=== PATIENT | female | born 1965 | race Two or more races ===

== ENCOUNTER → 2024-11-15 | Outpatient (CLI) | payer MEDICARE, BC, SELFPAY ==
--- NOTE | 2024-11-15 10:00 | XR_ITS ---
Examination: Screening digital mammography, bilateral Computer aided detection 3-D breast Tomosynthesis, bilateral Date and time of exam: November 15, 2024 10:00 AM Compared to mammograms dating to February 05, 2017 Indication: Screening Technique: Nonmagnified MLO, CC views of the breasts to been obtained, reconstructed from 3-D Tomosynthesis images. R2 computer aided detection program utilized for evaluation of suspicious masses and/or abnormal calcifications. 3-D Tomosynthesis images obtained. Findings: The breasts are heterogeneously dense, which may obscure small masses Bilateral breast nodules again noted without definite change compared to 2018 Benign calcifications Impression: BI-RADS Category 0: Incomplete: Need additional imaging evaluation Recommend bilateral breast sonography follow-up to confirm bilateral circumscribed benign breast nodules
== END | disposition home or self-care (01) ==
PROVIDERS: PCP Physician Assistant; Referring Provider Physician Assistant; Visit Provider Physician Assistant
DX: Z12.31 Encounter for screening mammogram for malignant neoplasm of breast (principal); R92.8 Other abnormal and inconclusive findings on diagnostic imaging of breast; N63.20 Unspecified lump in the left breast, unspecified quadrant; N63.10 Unspecified lump in the right breast, unspecified quadrant
CPT/HCPCS: 77063; 77067

== ENCOUNTER 2025-04-22 16:55 | Emergency (ER) | payer MEDICARE, BC, SELFPAY ==
[2025-04-22 16:58] VITALS: BMI 30.2
[2025-04-22 18:24] VITALS: BP 169/79; PULSE 89; RESP 18; TEMP 36.9; O2SAT 99
--- NOTE | 2025-04-22 18:49 | XR_ITS ---
Examination: Venous duplex lower extremity sonogram, bilateral. Date and time of exam: April 22, 2025, 1946 hours INDICATIONS: Bilateral leg swelling and pain 1 month Technique: Multiple sonographic images of the deep venous system have been obtained. B-mode/2-D grayscale imaging of vascular structures and Doppler spectral analysis (waveforms) and color performed Both legs are examined. Findings: Deep venous systems do not demonstrate abnormal echogenicity. All visualized deep veins exhibit compressibility. All visualized deep veins exhibit augmentation. Impression: Negative for deep vein thrombosis
--- NOTE | 2025-04-22 20:01 | PD.EDEXREM ---
ED Extremity Problem RME/HPI General Chief complaint: Extremity Problem,Nontraumatic Stated complaint: SWELLING LEFT LEG/PAIN FOR 3 WEEKS, R/O DVT Time Seen by Provider: 04/22/25 18:48 Arrival date/time: 04/22/25 16:55 60F with history of kidney transplant, HTN, and hypothyroidism presents to ED with 3 weeks of BLE swelling/pain. Patient denies SOB and fall/trauma. Patient was sent for US to r/o DVT. Limitations: no limitations Related Data Home Medications ?Medication ?Instructions ?Recorded ?Confirmed omega-3 fatty acids 1,000 mg PO QDAY 08/23/20 04/13/21 amino acids-protein hydrolysate 16 32 ml PO DAILY 01/22/21 04/13/21 gram-100 kcal/30 mL oral liquid (Liquacel) calcitriol 0.5 mcg capsule 0.5 mcg PO QDAY 01/22/21 04/13/21 docusate sodium 250 mg capsule 250 mg PO BID 01/22/21 04/13/21 omega-3 fatty acids 4,000 mg PO QDAY 01/22/21 04/13/21 simvastatin 20 mg tablet 20 mg PO QDAY 01/22/21 04/13/21 vitamin B comp no.3-folic acid 1 1 tab PO QDAY 01/22/21 04/13/21 mg-vit C 60 mg-biotin 300 mcg tablet (Nephro-Alvarado Rx) amlodipine 10 mg tablet 10 mg PO QDAY 04/12/21 04/13/21 furosemide 80 mg tablet 80 mg PO BID 04/12/21 04/13/21 levothyroxine 25 mcg tablet 25 mcg PO QDAY 04/12/21 04/13/21 (Synthroid) losartan 100 mg tablet 100 mg PO QDAY 04/12/21 04/13/21 mometasone 200 mcg/actuation HFA 1 inh inhalation QDAY 04/12/21 04/13/21 aerosol inhaler (Asmanex HFA) sevelamer HCl 800 mg tablet 800 mg PO TID 04/12/21 04/13/21 Previous Rx's ?Medication ?Instructions ?Recorded tramadol 50 mg tablet 50 mg PO Q6H PRN pain #20 tabs 01/23/21 hydrocodone 5 mg-acetaminophen 325 1 tab PO Q8H PRN pain (scale score 04/13/21 mg tablet 7-10) #15 tabs hydrocodone 5 mg-acetaminophen 325 1 tab PO Q8H PRN pain #10 tabs 07/20/ mg tablet Allergies Allergy/AdvReac Type Severity Reaction Status Date / Time VITAMIN B Allergy Severe Hives Uncoded 04/22/25 17:01 Review of Systems Review of Systems Systems Reviewed: All systems reviewed, normal except as documented Constitutional Constitutional: Reports system reviewed and no additional complaints, except as documented, Denies fever(s) and Denies headache(s) ENT Ears, Nose, Mouth, and Throat: Denies disequilibrium and Denies headache(s) Cardiovascular Cardiovascular: Reports system reviewed and no additional complaints, except as documented, Denies chest pain and Denies dyspnea Respiratory Respiratory: Reports system reviewed and no additional complaints, except as documented, Denies cough and Denies dyspnea Gastrointestinal Gastrointestinal: Reports system reviewed and no additional complaints, except as documented, Denies abdominal pain, Denies nausea and Denies vomiting Integumentary/Breasts Skin/Breast: Reports as per HPI and Reports skin swelling Neurologic Neurologic: Reports system reviewed and no additional complaints, except as documented, Denies confusion, Denies disequilibrium and Denies headache(s) Psychiatric Psychiatric: Denies confusion Past Medical History Past Medical History NEUROLOGIC: Positive Migraine; Negative Neurological Disorders or Seizures CARDIAC: Positive Cardiac Disorders, Hypercholesterolemia and Hypertension; Negative Congestive Heart Failure, Edema, Cellulitis or Varicose Veins RESPIRATORY: Negative Chronic Obstructive Pulmonary Disease (COPD) GASTROINTESTINAL: Positive Gastrointestinal Disorders, Hemorrhoids and Gastroesophageal Reflux Disease; Negative Hepatitis GENITOURINARY: Positive Renal Disease; Negative Genitourinary Disorders REPRODUCTIVE: Positive Previous Pregnancies MUSCULOSKELETAL: Negative Musculoskeletal Disorders ENDOCRINE: Positive Endocrine Disorders and Hypothyroidism; Negative Diabetes Mellitus Type 1 or Diabetes Mellitus Type 2 HEMATOLOGIC: Positive Blood Disorders and Anemia OTHER HISTORY: Positive Organ Transplant (R KIDNEY 07/12/24), Chicken Pox and Measles; Negative Hospitalization, Autoimmune Disease, Shingles, Falls, Blood Transfusions, Blood Transfusion Reaction, Anesthesia Reactions, Chemotherapy, Radiation Therapy, MRSA, Mumps or Cancer Family History FAMILY HISTORY: Positive Family Cardiac Disorders and Family Surgery; Negative Family Psychiatric Problems, Family Respiratory Disorders, Family Gastrointestinal Problems, Family Cancer or Family Anesthesia Reaction Surgical History SURGICAL: Positive Lumpectomy, Tubal Ligation and Organ Transplant (R KIDNEY 07/12/24); Negative Pacemaker Social History SMOKING STATUS: Never smoker SUBSTANCE USE: does not use ED Exam General Limitations: Present no limitations General appearance: Present alert and in no apparent distress Head Head exam: Present atraumatic Eye Eye exam: Present normal appearance, PERRL and EOMI ENT ENT exam: Present normal exam, normal oropharynx and mucous membranes moist Neck Neck exam: Present normal inspection, full ROM and trachea midline Chest Chest inspection: Present normal inspection and symmetric chest wall rise Respiratory Respiratory exam: Present normal lung sounds bilaterally Cardiovascular Cardiovascular exam: Present regular rate, normal rhythm and normal heart sounds Abdominal Exam Abdominal exam: Present soft and normal bowel sounds Extremities Exam Extremities exam: Present normal inspection and full ROM Expanded Lower Extremity Exam Lower leg exam: Present full ROM and swelling Ankle exam: Present full ROM and swelling Foot/toe exam: Present full ROM and swelling Back Exam Back exam: Present normal inspection and full ROM Neurological Exam Neurological exam: Present alert, oriented X3 and CN II-XII intact Psychiatric Psychiatric exam: Present normal affect and normal mood Skin Skin exam: Present warm, dry, intact and normal color Course Quality Measures none Orders Category Date Time Status US venous doppler LE BI Stat Exams 04/22/25 18:49 Completed Vital Signs Vital signs: Vital Signs Temperature 98.5 F 04/22/25 18:24 Pulse Rate 89 04/22/25 18:24 Respiratory Rate 18 04/22/25 18:24 Blood Pressure 169/79 H 04/22/25 18:24 Pulse Oximetry (%) 99 04/22/25 18:24 Oxygen Delivery Method Room Air 04/22/25 18:24 O2 at 99% on RA and WNLs Extremity Problem MDM Narrative MDM Narrative:: 60F with history of kidney transplant, HTN, and hypothyroidism presents to ED with 3 weeks of BLE swelling/pain. Patient denies SOB and fall/trauma. Patient was sent for US to r/o DVT. Physical exam reveals mildly swollen BLE, but normal WOB. Gait normal. Patient is afebrile, calm, and alert. US no DVT. New Vehicle Sales Consultant given. Patient data External records reviewed:: [facility] previous records Clinical information provided by:: patient Social determinants that could affect healthcare access:: none Patient has the following chronic illnesses:: kidney transplant, HTN, and hypothyroidism How is presenting disease/condition affected by chronic disease/condition?: exacerbated by Evaluation data The following diagnostics were reviewed and interpreted by me:: radiology exam(s) Lab and/or radiology exams considered but not ordered:: ordered Interpretation Summary: above Medications / Prescriptions Medications or Prescriptions considered but not ordered:: not ordered Medication administrations:: n/a Consultations Consultation(s) initiated? (list below): No Diagnosis Extremity Problem Differential Diagnosis: herpes zoster, gout, cellulitis, superficial thrombophlebitis, deep venous thrombosis of upper extremity, lower extremity edema and deep vein thrombosis of lower extremity Most likely diagnosis given after review of the tests above:: low extremity edema Admission Indicated Admission indicated?: not indicated Admission Request Was there a request for admission?: No Disposition Plan Disposition Plan: Discharge Discharge Attestation Discharge Attestation: The patient and all family members were given an opportunity to ask questions and understood the discharge instructions. Discharge instructions specifically effects, indications for sooner follow up or return to the emergency department, and the expected course of current diagnosis. Patient condition: Stable Discharge Plan Plan Patient Disposition: HOME (Self Care) Discharge Disposition comment: Stable Prescriptions/Referrals Prescriptions/Med Rec: No Action sevelamer HCl 800 mg Tablet 800 mg PO TID levothyroxine [Synthroid] 25 mcg Tablet 25 mcg PO QDAY furosemide 80 mg Tablet 80 mg PO BID amlodipine 10 mg Tablet 10 mg PO QDAY losartan 100 mg Tablet 100 mg PO QDAY Asmanex HFA 200 mcg/actuation Hfa Aerosol Inhaler 1 inh INHALATION QDAY hydrocodone-acetaminophen 5-325 mg tablet 1 tab PO Q8H MDD 3 PRN (Reason: pain (scale score 7-10)) Qty: 15 0RF omega-3 fatty acids Capsule 1,000 mg PO QDAY simvastatin 20 mg Tablet 20 mg PO QDAY calcitriol 0.5 mcg Capsule 0.5 mcg PO QDAY docusate sodium 250 mg Capsule 250 mg PO BID omega-3 fatty acids Capsule 4,000 mg PO QDAY Nephro-Alvarado Rx 1-60-300 mg-mg-mcg Tablet 1 tab PO QDAY Liquacel 16-100 gram-kcal/30 mL Liquid 32 ml PO DAILY tramadol 50 mg tablet 50 mg PO Q6H PRN (Reason: pain) Qty: 20 0RF hydrocodone-acetaminophen 5-325 mg tablet 1 tab PO Q8H MDD 3 tablets/day PRN (Reason: pain) Qty: 10 0RF Referrals: Benito Welsh MD [Primary Care Provider] - In 1 week Problem List Clinical Impression: Lower extremity edema Patient/Caregiver Discharge Instructions Education Materials: ED Leg Swelling in Both Legs Additional Instructions: Please follow-up with PCP within 24-48 hours and return immediately if symptoms worsen. Print Language: Yoruba Stand Alone Forms: Patient Portal Info Letter PA/TRUCK CLEANER Supervising Physician PA/TRUCK CLEANER Supervising Physician: Dr. Stern
== END 2025-04-22 21:46 | disposition home or self-care (01) ==
PROVIDERS: Emergency Provider Emergency Medicine; PCP Family Medicine
DX: R60.0 Localized edema (principal); M79.605 Pain in left leg; I10 Essential (primary) hypertension; E03.9 Hypothyroidism, unspecified; Z94.0 Kidney transplant status
CPT/HCPCS: 93970; 99283

== ENCOUNTER 2025-06-03 12:41 | Emergency (ER) | payer MEDICARE, BC, SELFPAY ==
[2025-06-03 12:42] VITALS: BMI 31.1
[2025-06-03 13:04] VITALS: BP 157/99; PULSE 62; RESP 18; O2SAT 99
--- NOTE | 2025-06-03 13:17 | PD.EDHA ---
ED Headache RME/HPI General Chief Complaint: Headache Stated Complaint: HEADACHE SINCE FRIDAY, HX OF MIGRAINE Time Seen by Provider: 06/03/25 12:59 Source: patient Arrival date/time: 06/03/25 12:41 60-year-old female with a history of hypertension, kidney transplant, and history of migraines presents to the emergency room with a chief complaint of a headache x 4 days Mode of arrival: ambulatory Limitations: no limitations Related Data Home Medications ?Medication ?Instructions ?Recorded ?Confirmed omega-3 fatty acids 1,000 mg PO QDAY 08/23/20 04/13/21 amino acids-protein hydrolysate 16 32 ml PO DAILY 01/22/21 04/13/21 gram-100 kcal/30 mL oral liquid (Liquacel) calcitriol 0.5 mcg capsule 0.5 mcg PO QDAY 01/22/21 04/13/21 docusate sodium 250 mg capsule 250 mg PO BID 01/22/21 04/13/21 omega-3 fatty acids 4,000 mg PO QDAY 01/22/21 04/13/21 simvastatin 20 mg tablet 20 mg PO QDAY 01/22/21 04/13/21 vitamin B comp no.3-folic acid 1 1 tab PO QDAY 01/22/21 04/13/21 mg-vit C 60 mg-biotin 300 mcg tablet (Nephro-Alvarado Rx) amlodipine 10 mg tablet 10 mg PO QDAY 04/12/21 04/13/21 furosemide 80 mg tablet 80 mg PO BID 04/12/21 04/13/21 levothyroxine 25 mcg tablet 25 mcg PO QDAY 04/12/21 04/13/21 (Synthroid) losartan 100 mg tablet 100 mg PO QDAY 04/12/21 04/13/21 mometasone 200 mcg/actuation HFA 1 inh inhalation QDAY 04/12/21 04/13/21 aerosol inhaler (Asmanex HFA) sevelamer HCl 800 mg tablet 800 mg PO TID 04/12/21 04/13/21 Previous Rx's ?Medication ?Instructions ?Recorded tramadol 50 mg tablet 50 mg PO Q6H PRN pain #20 tabs 01/23/21 hydrocodone 5 mg-acetaminophen 325 1 tab PO Q8H PRN pain (scale score 04/13/21 mg tablet 7-10) #15 tabs hydrocodone 5 mg-acetaminophen 325 1 tab PO Q8H PRN pain #10 tabs 07/20/23 mg tablet acetaminophen-caffeine 500 mg-65 1 tab PO Q8H PRN pain #30 tabs 06/03/25 mg tablet (Excedrin Tension Headache) Allergies Allergy/AdvReac Type Severity Reaction Status Date / Time VITAMIN B Allergy Severe Hives Uncoded 06/03/25 12:44 ED Exam General Limitations: Present no limitations Course Quality Measures none Orders Category Date Time Status Acetaminophen Tab [Tylenol ES Tab] Med 06/03/25 13:13 Discontinued 1,000 mg PO X1 ONE DiphenhydrAMINE [Benadryl] Med 06/03/25 13:11 Discontinued 25 mg PO X1 ONE Metoclopramide [Reglan] Med 06/03/25 13:11 Discontinued 10 mg PO X1 ONE SUMAtriptan INJ [Imitrex Inj] Med 06/03/25 14:35 Discontinued 6 mg SC X1 ONE Vital Signs Vital signs: Vital Signs Pulse Rate 62 06/03/25 13:04 Respiratory Rate 18 06/03/25 13:04 Blood Pressure 157/99 H 06/03/25 13:04 Pulse Oximetry (%) 99 06/03/25 13:04 Oxygen Delivery Method Room Air 06/03/25 13:04 Headache MDM Narrative MDM Narrative:: 60-year-old female with a history of hypertension, kidney transplant, and history of migraines presents to the emergency room with a chief complaint of a headache x 4 days Patient is hemodynamically stable and in no apparent distress Physical examination shows a left-sided headache that has been going on for the last 4 days. Patient states she has a history of migraines and has not taken any migraine medication in a while since her last one was over 4 months ago. Physical examination shows a normal neurological exam. There are no focal neurological deficits. Patient is a GCS of 15 she is alert and oriented x 3 pupils are PERRLA EOMs are intact all cranial reflexes are within normal limits The patient was given pain medication with significant improvement to her symptoms Patient was discharged and educated to follow-up with primary care provider in the next 24 to 48 hours and return to the emergency room for any evidence of worsening signs or symptoms Patient data External records reviewed:: [facility] previous records Clinical information provided by:: patient Social determinants that could affect healthcare access:: none Patient has the following chronic illnesses:: No chronic illness How is presenting disease/condition affected by chronic disease/condition?: no chronic disease Evaluation data The following diagnostics were reviewed and interpreted by me:: lab results and radiology exam(s) Lab and/or radiology exams considered but not ordered:: Labs and radiology exams considered and ordered Interpretation Summary: N/A Medications / Prescriptions Medications or Prescriptions considered but not ordered:: Medication given Medication administrations:: Medication Administration History Discontinued Medications Acetaminophen (Acetaminophen 500 Mg Tablet) 1,000 mg PO X1 ONE Stop: 06/03/25 13:14 Last Admin: 06/03/25 13:21 Dose: 1,000 mg Documented By: Diphenhydramine HCl (Diphenhydramine 25 Mg Capsule) 25 mg PO X1 ONE Stop: 06/03/25 13:12 Last Admin: 06/03/25 13:22 Dose: 25 mg Documented By: Metoclopramide HCl (Metoclopramide 5 Mg Tablet) 10 mg PO X1 ONE Stop: 06/03/25 13:12 Last Admin: 06/03/25 13:22 Dose: 10 mg Documented By: Sumatriptan Succinate (Sumatriptan Inj 6 Mg/0.5 Ml Vial) 6 mg SC X1 ONE Stop: 06/03/25 14:36 Last Admin: 06/03/25 14:48 Dose: 6 mg Documented By: Medication given Consultations Consultation(s) initiated? (list below): No Diagnosis Differential diagnosis headache: migraine, tension headache, subarachnoid hemorrhage and headache Most likely diagnosis given after review of the tests above:: Headache Admission Indicated Admission indicated?: not indicated Admission Request Was there a request for admission?: No Disposition Plan Disposition Plan: Discharge Discharge Attestation Discharge Attestation: The patient and all family members were given an opportunity to ask questions and understood the discharge instructions. Discharge instructions specifically effects, indications for sooner follow up or return to the emergency department, and the expected course of current diagnosis. Patient condition: Stable Discharge Plan Plan Patient Disposition: HOME (Self Care) Discharge Disposition comment: Stable Prescriptions/Referrals Prescriptions/Med Rec: New Excedrin Tension Headache 500-65 mg tablet 1 tab PO Q8H PRN (Reason: pain) Qty: 30 0RF No Action sevelamer HCl 800 mg Tablet 800 mg PO TID levothyroxine [Synthroid] 25 mcg Tablet 25 mcg PO QDAY furosemide 80 mg Tablet 80 mg PO BID amlodipine 10 mg Tablet 10 mg PO QDAY losartan 100 mg Tablet 100 mg PO QDAY Asmanex HFA 200 mcg/actuation Hfa Aerosol Inhaler 1 inh INHALATION QDAY hydrocodone-acetaminophen 5-325 mg tablet 1 tab PO Q8H MDD 3 PRN (Reason: pain (scale score 7-10)) Qty: 15 0RF omega-3 fatty acids Capsule 1,000 mg PO QDAY simvastatin 20 mg Tablet 20 mg PO QDAY calcitriol 0.5 mcg Capsule 0.5 mcg PO QDAY docusate sodium 250 mg Capsule 250 mg PO BID omega-3 fatty acids Capsule 4,000 mg PO QDAY Nephro-Alvarado Rx 1-60-300 mg-mg-mcg Tablet 1 tab PO QDAY Liquacel 16-100 gram-kcal/30 mL Liquid 32 ml PO DAILY tramadol 50 mg tablet 50 mg PO Q6H PRN (Reason: pain) Qty: 20 0RF hydrocodone-acetaminophen 5-325 mg tablet 1 tab PO Q8H MDD 3 tablets/day PRN (Reason: pain) Qty: 10 0RF Referrals: Alvaro Key MD [Primary Care Provider, Family Practice] - In 1 week Problem List Clinical Impression: Headache Patient/Caregiver Discharge Instructions Education Materials: Self-Care for Headaches Additional Instructions: Por favor, consulte con dolan m?dico de cabecera en las pr?ximas 24 a 48 horas. Si nota alg?n empeoramiento de los signos o s?ntomas, acuda inmediatamente a urgencias. Print Language: Serbian Stand Alone Forms: Latanya Award Info., Patient Portal Info Letter PA/LOGGING RAFTER LABORER Supervising Physician PA/LOGGING RAFTER LABORER Supervising Physician: Dr. Talley
[2025-06-03] MEDS: ACETAMINOPHEN 500 MG TABLET 1000 MG PO (13:21)
[2025-06-03] MEDS: METOCLOPRAMIDE 5 MG TABLET 10 MG PO (13:22)
[2025-06-03] MEDS: SUMAtriptan INJ 6 MG/0.5 ML VIAL SC (14:48)
== END 2025-06-03 16:30 | disposition home or self-care (01) ==
PROVIDERS: Emergency Provider Family Medicine; PCP Family Medicine
DX: R51.9 Headache, unspecified (principal); I10 Essential (primary) hypertension
CPT/HCPCS: 96372; 99283; J3030; A9270

== ENCOUNTER 2025-07-18 20:11 | Inpatient (IN) | payer MEDICARE, BC, SELFPAY ==
[2025-07-18] VITALS (8 sets, daily range): BP systolic 95–130; BP diastolic 59–83; PULSE 83–101; RESP 16–29; TEMP 37.8–39.7; O2SAT 89–97
--- NOTE | 2025-07-18 20:15 | PC.NURSE ---
PT BROUGHT TO ER BY AMBULANCE FROM HOME, PT. C/O BEING WEAK. PT HAD KIDNEY TRANSPLANT, PT WENT TO [place] YESTERDAY FOR HER WEEKLY INFUSION THERAPY. NO C/O PAIN, NO NAUSEA OR VOMITING, PT SEEMS SHORT OF BREATH, O2 SAT 93% RA.
--- NOTE | 2025-07-18 20:37 | PD.EDADULT ---
ED General RME/HPI General Chief complaint: General Adult/Misc Complain Stated complaint: WEAKNESS Time Seen by Provider: 07/18/25 20:37 Arrival date/time: 07/18/25 20:11 RME / HPI RME / HPI narrative: Dr. Stern?s Main ED Evaluation: 60yo female with a history of HTN, HLD, kidney transplant 2 years ago BIBA from home presents to the ED for a chief complaint of a right-sided headache. Patient states she normally has headaches, but started feeling generally weak yesterday. Patient reports associated nausea, decreased appetite, and cough. No fever or any other associated symptoms. Related Data Home Medications ?Medication ?Instructions ?Recorded ?Confirmed omega-3 fatty acids 1,000 mg PO QDAY 08/23/20 04/13/21 amino acids-protein hydrolysate 16 32 ml PO DAILY 01/22/21 04/13/21 gram-100 kcal/30 mL oral liquid (Liquacel) calcitriol 0.5 mcg capsule 0.5 mcg PO QDAY 01/22/21 04/13/21 docusate sodium 250 mg capsule 250 mg PO BID 01/22/21 04/13/21 omega-3 fatty acids 4,000 mg PO QDAY 01/22/21 04/13/21 simvastatin 20 mg tablet 20 mg PO QDAY 01/22/21 04/13/21 vitamin B comp no.3-folic acid 1 1 tab PO QDAY 01/22/21 04/13/21 mg-vit C 60 mg-biotin 300 mcg tablet (Nephro-Alvarado Rx) amlodipine 10 mg tablet 10 mg PO QDAY 04/12/21 04/13/21 furosemide 80 mg tablet 80 mg PO BID 04/12/21 04/13/21 levothyroxine 25 mcg tablet 25 mcg PO QDAY 04/12/21 04/13/21 (Synthroid) losartan 100 mg tablet 100 mg PO QDAY 04/12/21 04/13/21 mometasone 200 mcg/actuation HFA 1 inh inhalation QDAY 04/12/21 04/13/21 aerosol inhaler (Asmanex HFA) sevelamer HCl 800 mg tablet 800 mg PO TID 04/12/21 04/13/21 Previous Rx's ?Medication ?Instructions ?Recorded tramadol 50 mg tablet 50 mg PO Q6H PRN pain #20 tabs 01/23/21 hydrocodone 5 mg-acetaminophen 325 1 tab PO Q8H PRN pain (scale score 04/13/21 mg tablet 7-10) #15 tabs hydrocodone 5 mg-acetaminophen 325 1 tab PO Q8H PRN pain #10 tabs 07/20/23 mg tablet acetaminophen-caffeine 500 mg-65 1 tab PO Q8H PRN pain #30 tabs 06/03/25 mg tablet (Excedrin Tension Headache) ondansetron 4 mg disintegrating 4 mg PO Q8H PRN nausea and 06/03/25 tablet vomiting #14 tabs Allergies Allergy/AdvReac Type Severity Reaction Status Date / Time VITAMIN B Allergy Severe Hives Uncoded 07/18/25 20:20 Review of Systems Review of Systems Systems Reviewed: All systems reviewed, normal except as documented Past Medical History Past Medical History NEUROLOGIC: Positive Migraine; Negative Neurological Disorders or Seizures CARDIAC: Positive Cardiac Disorders, Hypercholesterolemia and Hypertension; Negative Congestive Heart Failure, Edema, Cellulitis or Varicose Veins RESPIRATORY: Negative Chronic Obstructive Pulmonary Disease (COPD) GASTROINTESTINAL: Positive Gastrointestinal Disorders, Hemorrhoids and Gastroesophageal Reflux Disease; Negative Hepatitis GENITOURINARY: Positive Renal Disease; Negative Genitourinary Disorders REPRODUCTIVE: Positive Previous Pregnancies MUSCULOSKELETAL: Negative Musculoskeletal Disorders ENDOCRINE: Positive Endocrine Disorders and Hypothyroidism; Negative Diabetes Mellitus Type 1 or Diabetes Mellitus Type 2 HEMATOLOGIC: Positive Blood Disorders and Anemia OTHER HISTORY: Positive Organ Transplant (R KIDNEY 07/12/24), Chicken Pox and Measles; Negative Hospitalization, Autoimmune Disease, Shingles, Falls, Blood Transfusions, Blood Transfusion Reaction, Anesthesia Reactions, Chemotherapy, Radiation Therapy, MRSA, Mumps or Cancer Family History FAMILY HISTORY: Positive Family Cardiac Disorders and Family Surgery; Negative Family Psychiatric Problems, Family Respiratory Disorders, Family Gastrointestinal Problems, Family Cancer or Family Anesthesia Reaction Surgical History SURGICAL: Positive Lumpectomy, Tubal Ligation and Organ Transplant (R KIDNEY 07/12/24); Negative Pacemaker Social History SMOKING STATUS: Never smoker SUBSTANCE USE: does not use ED Exam Narrative Physical exam: Generally patient is alert and ill-appearing, heart slightly tachycardic rate with regular rhythm, lungs clear to auscultation equal bilaterally, abdomen soft bowel sounds present nondistended and nontender, extremities show no edema, skin is warm pale and dry without rash, neck shows no nuchal rigidity, neurologic exam shows Vahid Coma Scale of 15 without focal motor deficit Course Course Course Narrative: CXR is ordered for determining the etiology of fever. 2137: Sepsis alert initiated. Orders made at this time are congruent with ED Adult Sepsis Order List. Re-evaluation is to be completed. Quality Measures Possible source: pulmonary Blood cultures ordered: yes Antibiotic ordered: Yes Pertinent labs: 07/18/25 21:02 Lactic Acid 2.4 H mMol/L (0.4-2.0) sepsis Orders Category Date Time Status Bedside COVID-19 Antigen Test NOW Care 07/18/25 21:34 Active Bedside Influenza A&B Antigen Test NOW Care 07/18/25 21:34 Completed COVID-19 Screening Questionnaire NOW Care 07/18/25 22:03 Active EKG (ED ONLY) *Do not use* NOW Care 07/18/25 20:50 Completed Insert IV NOW Care 07/18/25 21:04 Active EKG (ED Only) Stat Exams 07/18/25 20:50 Draft US gall bladder Stat Exams 07/18/25 21:58 Ordered XR chest 1V portable Stat Exams 07/18/25 20:49 Completed Bilirubin,Direct Stat Lab 07/18/25 21:02 Results Bilirubin,Direct Stat Lab 07/18/25 21:59 Ordered Blood Culture (Lab) Stat Lab 07/18/25 21:02 Received CBC Stat Lab 07/18/25 21:02 Completed CMP [Comprehensive Metabolic Panel] Stat Lab 07/18/25 21:02 Results Lactic Acid [Lactate (Lactic Acid)] Stat Lab 07/18/25 21:02 Results UA [Urinalysis] Stat Lab 07/18/25 20:49 Ordered Acetaminophen Tab [Tylenol Tab] Med 07/18/25 20:52 Discontinued 650 mg PO X1 ONE Morphine* Inj Med 07/18/25 20:52 Discontinued 4 mg IVP X1 ONE Piper/Tazo Inj [Zosyn Inj] 4.5 gm Med 07/18/25 21:34 Discontinued Sodium Chloride 0.9% (Pop) [NS 0.9% mini bag] 100 ml IV X1 Vital Signs Vital signs: Vital Signs Temperature 103.2 F H 07/18/25 20:14 Pulse Rate 101 H 07/18/25 20:14 Respiratory Rate 18 07/18/25 20:14 Blood Pressure 130/83 07/18/25 20:14 Pulse Oximetry (%) 92 L 07/18/25 20:14 Oxygen Delivery Method Room Air 07/18/25 20:14 Critical Care Time Critical Care Time Critical Care Time: Yes Total Critical Care Time (min.): 35 Attestation: Excluding other billable procedures Discharge Plan Plan Patient Disposition: Admit Acute Care w/in Hospital Prescriptions/Referrals Prescriptions/Med Rec: No Action sevelamer HCl 800 mg Tablet 800 mg PO TID levothyroxine [Synthroid] 25 mcg Tablet 25 mcg PO QDAY furosemide 80 mg Tablet 80 mg PO BID amlodipine 10 mg Tablet 10 mg PO QDAY losartan 100 mg Tablet 100 mg PO QDAY Asmanex HFA 200 mcg/actuation Hfa Aerosol Inhaler 1 inh INHALATION QDAY hydrocodone-acetaminophen 5-325 mg tablet 1 tab PO Q8H MDD 3 PRN (Reason: pain (scale score 7-10)) Qty: 15 0RF omega-3 fatty acids Capsule 1,000 mg PO QDAY simvastatin 20 mg Tablet 20 mg PO QDAY calcitriol 0.5 mcg Capsule 0.5 mcg PO QDAY docusate sodium 250 mg Capsule 250 mg PO BID omega-3 fatty acids Capsule 4,000 mg PO QDAY Nephro-Alvarado Rx 1-60-300 mg-mg-mcg Tablet 1 tab PO QDAY Liquacel 16-100 gram-kcal/30 mL Liquid 32 ml PO DAILY tramadol 50 mg tablet 50 mg PO Q6H PRN (Reason: pain) Qty: 20 0RF hydrocodone-acetaminophen 5-325 mg tablet 1 tab PO Q8H MDD 3 tablets/day PRN (Reason: pain) Qty: 10 0RF Excedrin Tension Headache 500-65 mg tablet 1 tab PO Q8H PRN (Reason: pain) Qty: 30 0RF ondansetron 4 mg tablet,disintegrating 4 mg PO Q8H PRN (Reason: nausea and vomiting) Qty: 14 0RF Referrals: Alvaro Key MD [Primary Care Provider, Family Practice] - In 1 week Problem List Clinical Impression: Sepsis, Pneumonia, Renal transplant recipient, Immunocompromised Patient/Caregiver Discharge Instructions Print Language: Maltese Stand Alone Forms: Latanya Award Info., Patient Portal Info Letter MDM Narrative MDM hospital course (for use when minimal MDM required): Scribe Attestation: 07/18/25 María Sorenson am scribing for and in the presence of Dr. Stern. Patient's temperature is 103 degrees with tachycardia. Septic workup was initiated. Lactic acid level was 2.4. Patient is not hypotensive. Patient received morphine 4 mg IV for headache as well as Tylenol 650 mg p.o. for fever. White count is 12,000 which is much more elevated than normal for the patient. The patient is immunocompromise due to the fact that she is on antirejection medication for her kidney transplant 2 years ago. She is on CellCept and prednisone. She also undergoes IV infusion every 4 weeks up in [place] which she received yesterday. Supposedly this IV infusion is on antirejection medication as well. Creatinine is 2.3 with a normal potassium. Chest x-ray showed a rounded consolidation at the right base. Patient has been complaining of a cough and coughing here in the emergency room. I covered the patient with Zosyn 4.5 g IV. I held off on the vancomycin due to the fact that the patient has renal insufficiency and is a renal transplant patient and the fact that vancomycin is a nephrotoxic drug does not warrant its administration at this time. LFTs were elevated. Patient has no right upper quadrant abdominal tenderness. However, gallbladder ultrasound will be obtained. I did discuss this case with the hospitalist and the patient will require admission to the hospital for further treatment and evaluation. I interpreted all labs. Clinical Information Provided by: patient Medical Records reviewed [facility] (Per chart review, patient was seen here on 06/03/25 for headache.) Meds/Rx considered, not ordered None Labs/Rad/Tests considered, not ordered None Chronic Illness/Social Conditions Explain: Hx HTN, HLD, kidney transplant 2 years ago Labs Labs: interpreted by me Imaging Imaging interpretation: interpreted by me Imaging Interpretation(s): [facility] Report Signed Patient: BG QUINTANA [facility]. Record#: [id number] Birthdate: 1965 Age/Sex: 60 / F Location: [facility] Attending Dr: Ordering Physician: Cedric Stern DO Date of Service: 07/18/25 Procedure(s): XR chest 1V portable Accession Number(s): [id number] cc: Jarod Davis MD; Cedric Stern DO~ EXAMINATION: AP chest single view TECHNIQUE: AP portable upright chest single view Date and time: July 18, 2025, 2114 hours INDICATIONS: Chest pain beginning yesterday. FINDINGS: Dense consolidation right base, rounded, 3 cm Left lung clear Normal heart size IMPRESSION: Rounded dense consolidation right base versus cavitary pulmonary nodule, recommend CT scan chest without contrast follow-up Dictated By: Jarod Davis MD Signed By: <Electronically signed by Jarod Davis MD in OV> 07/18/25 3926 Medication Administration(s) Medication Administration History Discontinued Medications Acetaminophen (Acetaminophen 325 Mg Tablet) 650 mg PO X1 ONE Stop: 07/18/25 20:53 Last Admin: 07/18/25 21:07 Dose: 650 mg Documented By: SM Piperacillin Sod/Tazobactam (Sod 4.5 gm/ Sodium Chloride) 100 mls @ 200 mls/hr IV X1 ONE; Protocol Stop: 07/18/25 22:03 Last Admin: 07/18/25 21:55 Dose: 200 mls/hr Documented By: CVL Morphine Sulfate (Morphine Sulf Inj 4 Mg/Ml Vial) 4 mg IVP X1 ONE Stop: 07/18/25 20:53 Last Admin: 07/18/25 21:07 Dose: 4 mg Documented By: SM see above Diagnosis Differential Diagnosis ED Complaint MDM: See MDM
--- NOTE | 2025-07-18 20:49 | XR_ITS ---
EXAMINATION: AP chest single view TECHNIQUE: AP portable upright chest single view Date and time: July 18, 2025, 2113 hours INDICATIONS: Chest pain beginning yesterday. FINDINGS: Dense consolidation right base, rounded, 3 cm Left lung clear Normal heart size IMPRESSION: Rounded dense consolidation right base versus cavitary pulmonary nodule, recommend CT scan chest without contrast follow-up
--- NOTE | 2025-07-18 20:50 | EKG_ITS ---
[facility] Test Date: 2025-07-18 Pat Name: BG QUINTANA Department: Room: - Gender: Female [employer]: : 1965 Requested By: Cedric Arzola Order Number: [id number] Reading MD: Cedric Arzola Measurements Intervals [place] Rate: 99 P: -14 OR: 140 QRS: 20 QRSD: 73 T: 36 QT: 409 QTc: 527 Interpretive Statements SINUS RHYTHM MODERATE ST DEPRESSION [0.05+ mV ST DEPRESSION] Compared to ECG 08/23/2020 09:17:25 ST (T wave) deviation now present T-wave abnormality no longer present /store/S0/[id number].pdf
[2025-07-18] MEDS: ACETAMINOPHEN 325 MG TABLET 650 MG PO (21:07)
[2025-07-18] MEDS: MORPHINE SULF INJ 4 MG/ML VIAL IVP (21:07)
[2025-07-18 21:15] LABS: Lactate (Lactic Acid) 2.4 mMol/L (0.4-2.0)
[2025-07-18 21:21] LABS: Basophils # (Auto) 0.0 Thou/mm3 (0.0-0.2); Basophils % (Auto) 0 % (0-2.5); Eosinophils # (Auto) 0.1 Thou/mm3 (0.0-0.5); Eosinophils % (Auto) 1 % (0-10); Hematocrit 36.2 % (36.0-46.0); Hemoglobin 12.0 g/dL (12.0-16.0); Immature Granulocytes Auto 0.45 Thou/mm3 (0.00-0.00); Lymphocytes # (Auto) 0.3 Thou/mm3 (1.0-4.8); Lymphocytes % (Auto) 3 % (10-50); Mean Corpuscular HGB Conc 33.1 g/dl (31.0-37.0); Mean Corpuscular Hemoglobin 30.5 pg (25.0-35.0); Mean Corpuscular Volume 92 fL (80-100); Monocytes # (Auto) 0.6 Thou/mm3 (0.0-0.8); Monocytes % (Auto) 5 % (0-12); Neutrophils # (Auto) 11.1 Thou/mm3 (1.8-7.7); Neutrophils % (Auto) 88 % (37-80); Nucleated Red Blood Cell # 0.00 Thou/mm3 (0.00-0.00); Nucleated Red Blood Cell % 0 /100 WBC (0); Platelet Count 130 Thou/mm3 (140-440); RDW Standard Deviation 40.7 fL (36.4-46.3); Red Blood Count 3.94 Miln/mm3 (4.00-5.20); White Blood Count 12.7 Thou/mm3 (3.6-11.0)
[2025-07-18 21:34] LABS: Alanine Aminotransferase 56 U/L (10-49); Albumin, Serum 4.0 gm/dL (3.5-5.0); Albumin/Globulin Ratio 2.7 (1.2-2.2); Alkaline Phosphatase 160 U/L (46-116); Anion Gap 14 (7-16); Aspartate Amino Transferase 76 U/L (0-34); BUN/Creatinine Ratio 10 Ratio (12-20); Bilirubin,Total 1.6 mg/dL (0.3-1.2); Blood Urea Nitrogen 24 mg/dL (9-23); Calcium 8.6 mg/dL (8.3-10.6); Calcium (Corrected) 8.6 mg/dL (8.5-10.1); Carbon Dioxide 23.2 mMol/L (20.0-31.0); Chloride 99 mMol/L (98-107); Creatinine (Component) 2.3 mg/dL (0.6-1.3); Globulin 1.5 gm/dL (2.3-3.5); Glucose 115 mg/dL (74-106); Osmolality,Calculated 276 (275-295); Potassium 3.7 mMol/L (3.4-5.1); Sodium 136 mMol/L (136-145); Total Protein 5.5 gm/dL (5.7-8.2); eGFR 24 See Note
[2025-07-18] MEDS: PIPER/TAZO INJ 4.5 GM in SODIUM CHLORIDE 0.9% (POP) 100 ML IV (21:55)
--- NOTE | 2025-07-18 21:58 | XR_ITS ---
Examination: Abdomen sonogram, Limited Date and time of exam: July 18, 2025, 10:20 p.m. INDICATIONS: Right upper abdominal pain today Technique: Real-time mendez scale transabdominal sonographic images of the upper abdomen obtained. Findings: Normal gallbladder Normal common bile duct 0.3 cm Pancreatic head 1.9 cm Liver 11.1 cm no liver lesions Normal hepatopetal portal venous flow Patent IVC IMPRESSION: Normal gallbladder Normal common bile duct
[2025-07-18 22:25] LABS: Bilirubin,Direct 0.8 mg/dL (0.0-0.3)
--- NOTE | 2025-07-18 23:22 | XR_ITS ---
Examination: CT chest, without intravenous contrast. CT abdomen, without intravenous contrast. CT pelvis, without intravenous contrast. 2-D sagittal and coronal reconstructions. 3-D reconstructions. Date and time of exam: July 19, 2025, 0016 hours INDICATIONS: Coughing fever chest pain and abdominal pain onset today, history renal insufficiency CTDI vol (mgy) 7.92 DLP (MGycm) 545 Technique: Multiple CT images, 3.0 mm slice thickness, obtained chest, abdomen, pelvis, with the high-resolution 64 slice scanner.. Sagittal and coronal 2-D reconstructions are obtained. 3-D reconstructions Low dose protocols were performed. One or more of the following dose reduction techniques were used; automated exposure control, adjustment of the mA and/or KV according to patient size, use of iterative reconstruction technique. 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
--- NOTE | 2025-07-18 23:45 | ESHP_ITS ---
<Statement entered by Fab Fam MD - 07/19/25 20:14> I have discussed and was present for the essential components of the history, physical examination, diagnosis, and treatment plan with the resident. I agree with the patient's care as documented by the resident and amended herein by me. Fab Fam MD FACP. <Statement entered by Fatou Burgess MD - 07/19/25 01:10> Note reviewed, I agree with most of its contents and agree with the patient's care as documented by Dr. Blas. Sade Rosas is 60 yr F with PMH HTN, HLD, kidney transplant 2 yrs ago presenting to ED with chief complaint headache. Endorsing 20lb wt loss, decreased appetitie, n/v. Medications reviewed at bedside. Currently on mycophenolate and prednisone 5mg daily. She follows with transplant specialsit Dr. Bernardino Cota in . Temp was 103.2, HR 101, BP 130/83, RR 18, 92% on room air. BUN 24, Cr 2.3, LA 2.4. Normal gallbladder on u/s, no CBD dilation. CXR showed consolidation in right lung base. Patient admitted for sepsis 2/2 PNA. Stated on renally dosed IV Zosyn due to immunosupression. Follow up CT chest is pending. Follow up with blood cultures. Hold mycophenolate in setting of her sepsis and start stress dose steroids. Day team should contact patient's mate ship for further recommendations in regards to immunosuppresant therapy. The patient's management plan was discussed with my attending physician Dr. Fam. Fatou Burgess, PGY-2 Documentation for date of: 07/18/25 HPI History of Present Illness History of present illness: 60-year-old female with a history of HTN, HLD, and kidney transplant (2 years ago, on Mycophenolate mofetil 250 mg twice daily and prednisone 5 mg daily), presents with a chief complaint of worsening productive cough for the past 3 days. She reports associated symptoms of nausea, vomiting, decreased oral intake, intermittent fevers, and a 20-pound weight loss over the past 6 weeks. The patient has also been experiencing significant weakness, to the point where she is unable to get out of bed, and has decreased appetite. She denies sick contacts at home. The patient follows Dr. Bernardino Cota, her renal transplant specialist, in [place]. She denies any other significant symptoms, including chest pain or shortness of breath. The primary concern is the worsening productive cough. ED course: Initial vitals include T 103.2, HR 101, BP 130/83, RR 18, 92% on room air. Notable labs include WBC 12.7, platelet 130, BUN 24, creatinine 2.3, lactic acid 2.4. Chest x-ray shows rounded dense consolidation right base. Gallbladder ultrasound normal. EKG sinus rhythm, QTc 527 ms. Patient received Zosyn 4.5 g. Past medical history: As stated above. Allergies: Vitamin B (hives). Family history: Noncontributory. Social history: No alcohol use, no smoking, no illicit drug use. Patient admitted for sepsis secondary to community-acquired pneumonia. Review of Systems Review of Systems Narrative Review of Systems: All systems reviewed negative unless stated otherwise above. Exam Vital Signs Temp Pulse Resp BP Pulse Ox O2 Del Method 100.0 F 96 16 103/70 95 Room Air 07/18/25 22:12 07/18/25 22:02 07/18/25 22:02 07/18/25 22:02 07/18/25 22:02 07/18/25 22:02 Narrative Exam General: AOx3, in mild distress, able to speak full sentences, Chinese-speaking HEENT: NC/AT, mucous membranes moist, bilateral sclera anicteric Cardiovascular: regular rate and rhythm, S1/S2 present, no murmurs appreciated Pulmonary: clear to auscultation bilaterally, no rales/rhonchi/wheezes Abdominal: soft, non-tender, non-distended, no rebound/guarding, normal bowel sounds present Musculoskeletal: normal ROM, no peripheral edema Skin: warm and dry, intact, no rashes, Neuro: CN II-XII intact, no focal deficits Results: Labs 07/19/25 04:35 07/19/25 04:35 Labs: Short CBC 07/18/25 Range/Units 21:02 WBC 12.7 H (3.6-11.0) Thou/mm3 Hgb 12.0 (12.0-16.0) g/dL Hct 36.2 (36.0-46.0) % Plt Count 130 L (140-440) Thou/mm3 BMP 07/18/25 21:02 Sodium 136 Potassium 3.7 Chloride 99 Carbon Dioxide 23.2 BUN 24 H Creatinine 2.3 H Glucose 115 H Calcium 8.6 Liver Function 07/18/25 Range/Units 21:02 Total Bilirubin 1.6 H (0.3-1.2) mg/dL Direct Bilirubin 0.8 H (0.0-0.3) mg/dL AST 76 H (0-34) U/L ALT 56 H (10-49) U/L Alkaline Phosphatase 160 H (46-116) U/L Albumin 4.0 (3.5-5.0) gm/dL Quality Measures Quality Measures sepsis Current suspected stage: sepsis Possible source: pulmonary Blood cultures ordered: yes Antibiotic ordered: Yes Medications Home Medications and Allergies Home Medications ?Medication ?Instructions ?Recorded ?Confirmed ?Type omega-3 fatty acids 1,000 mg PO QDAY 08/23/20 History amino acids-protein hydrolysate 16 32 ml PO DAILY 12/3104/13/21 History gram-100 kcal/30 mL oral liquid (Liquacel) calcitriol 0.5 mcg capsule 0.5 mcg PO QDAY 01/22/21 History docusate sodium 250 mg capsule 250 mg PO BID 01/22/21 04/13/21 History omega-3 fatty acids 4,000 mg PO QDAY 01/22/21 History simvastatin 20 mg tablet 20 mg PO QDAY 01/22/2104/13 History vitamin B comp no.3-folic acid 1 1 tab PO QDAY 1 04/13/21 History mg-vit C 60 mg-biotin 300 mcg tablet (Nephro-Alvarado Rx) amlodipine 10 mg tablet 10 mg PO QDAY 04/12/2104/13 History furosemide 80 mg tablet 80 mg PO BID 04/12/21 History levothyroxine 25 mcg tablet 25 mcg PO QDAY 04/12/21 History (Synthroid) losartan 100 mg tablet 100 mg PO QDAY 04/12/2104/01 History mometasone 200 mcg/actuation HFA 1 inh inhalation QDAY 04/12/21 04/13/21 History aerosol inhaler (Asmanex HFA) sevelamer HCl 800 mg tablet 800 mg PO TID 04/12/21 History Allergies Allergy/AdvReac Type Severity Reaction Status Date / Time VITAMIN B Allergy Severe Hives Uncoded 07/18/25 20:20 Visit Medications Heparin Sodium (Porcine) (Heparin Sod Inj 5000 Unit/Ml Vial) 5,000 unit SC Q8HR YFN Stop: 08/01/25 23:44 Lactated Ringer's (Lactated Ringers) 1,000 mls @ 100 mls/hr IV .Q10H YFN Stop: 07/19/25 19:44 Piperacillin Sod/Tazobactam (Sod 4.5 gm/ Sodium Chloride) 100 mls @ 200 mls/hr IV Q8HR YFN; Protocol Stop: 07/26/25 05:59 Morphine Sulfate (Morphine Sulf Inj 4 Mg/Ml Vial) 2 mg IVP Q4HR PRN PRN Reason: PAIN SCALE 7-10 (Severe Stop: 07/23/25 23:32 Sennosides (Senna Tablet) 1 tab PO QDAY PRN; Protocol PRN Reason: constipation Stop: 08/17/25 23:32 Discontinued Medications Acetaminophen (Acetaminophen 325 Mg Tablet) 650 mg PO X1 ONE Stop: 07/18/25 20:53 Last Admin: 07/18/25 21:07 Dose: 650 mg Piperacillin Sod/Tazobactam (Sod 4.5 gm/ Sodium Chloride) 100 mls @ 200 mls/hr IV X1 ONE; Protocol Stop: 07/18/25 22:03 Last Infusion: 07/18/25 22:37 Dose: Infused Morphine Sulfate (Morphine Sulf Inj 4 Mg/Ml Vial) 4 mg IVP X1 ONE Stop: 07/18/25 20:53 Last Admin: 07/18/25 21:07 Dose: 4 mg Assessment & Plan Plan 60-year-old female with a history of HTN, HLD, and kidney transplant (2 years ago, on Mycophenolate mofetil 250 mg twice daily and prednisone 5 mg daily), presents with a chief complaint of worsening productive cough for the past 3 days. Patient admitted for sepsis secondary to community-acquired pneumonia. #Sepsis 2/2 #Community-acquired pneumonia Patient complaining of worsening productive cough for the past 3 days. Febrile, Tmax of 103.2 Initial BP 130/83 with most recent BP 90/63 -> given LR 1L in response SpO2 92% on room air WBC 12.7 Lactic acid 2.4 Pro-Jayson pending UA pending Plan ? Started on Zosyn 4.5 g IV every 8 hours and doxycycline 100 mg PO BID ? Follow-up on blood culture and urine culture ? Trend lactic acid every 4 hours ? CT chest/abdomen/pelvis ordered ? Cocci serology ordered #History of renal transplant, [address] Patient [address] Bernardino Cota, her renal transplant specialist, in [place], last seen in May Patient takes IV infusions for transplant rejection every month Patient takes Mycophenolate mofetil 250 mg twice daily and prednisone 5 mg daily Creatinine on admission 2.3, unknown what the baseline is after renal transplant Plan: ? Started on stress dosing hydrocortisone 100 mg IV every 8 hours ? Hold Mycophenolate mofetil ? Day team to contact Dr. Bernardino Cota (renal transplant specialist) to get further recommendations ? Renally dose medications ? Avoid nephrotoxic medications #Hyperbilirubinemia #Transaminitis No abdominal pain No liver issues in the past T. bili 1.6, AST 76, ALT 56, alk phos 160 Plan ? Follow LFTs in a.m. ? Hepatitis panel ordered #History of hypertension #History of hyperlipidemia ? Resume home meds once med recon done Health Maintenance: Diet: Regular GI prophylaxis: None DVT prophylaxis: Heparin 5000u SC every 8 hours Antibiotics: Zosyn and doxycycline CODE STATUS: Full Disposition: Telemetry Case discussed with my attending Dr. Fam, and senior resident, Dr. Jenifer Blas MD PGY-1
[2025-07-19] VITALS (22 sets, daily range): BP systolic 89–141; BP diastolic 59–86; PULSE 60–87; RESP 12–97; TEMP 36–37.2; O2SAT 89–100; BMI 27.9
--- NOTE | 2025-07-19 | XR_ITS ---
EXAMINATION: Renal sonography Renal Doppler assessment peak systolic arterial velocities, resistive indices, renal aorta ratios Date and time: July 19, 2025, 0248 hours INDICATIONS: Headaches 6 weeks, renal transplant 2022 TECHNIQUE AND FINDINGS: Multiple sonographic images of the kidneys, assessment peak velocities renal arteries, calculation of resistive indices, FINDINGS: Right kidney 10.7 cm. Left kidney 7.6 cm Lower pole 4.9 cm left renal cyst No elevation of peak systolic velocities Mild elevation of resistive indices renal ostia IMPRESSION: Small left kidney No sonographic findings of renal artery stenosis
[2025-07-19] MEDS: HEPARIN SOD INJ 5000 UNIT/ML VIAL SC ×4 (00:03→22:00)
[2025-07-19 00:11] LABS: Reflex Lactate? Y
[2025-07-19 00:50] LABS: Lactate (Lactic Acid) 1.7 mMol/L (0.4-2.0)
[2025-07-19] MEDS: RINGERS LACTATED 1000 ML 1,000 ML 100 ML IV (00:55)
[2025-07-19] MEDS: RINGERS LACTATED 1000 ML 1,000 ML 999 ML IV (01:09)
[2025-07-19] MEDS: HYDROCORTISONE SOD SUCC INJ 100 MG 2 ML VIAL IV ×3 (01:10→16:33)
[2025-07-19 01:14] LABS: Collection Type, Urine Catheter
[2025-07-19 01:29] LABS: Amorphous Crystals,Urine Present (Absent); Bacteria,Urine Rare; Bilirubin,Urine Negative (Negative); Blood,Urine 2+ (Negative); Color,Urine Yellow (Lt Yel-Yel); Glucose, Urine Negative (Negative); Ketones,Urine 1+ (Negative); Leukocyte Esterase,Urine Positive (Negative); Nitrite,Urine Negative (Negative); PH,Urine 6.0 (5.0-7.0); Protein,Urine 2+ (Neg - Trace); RBC,Urine 2 /hpf (0-3); Specific Gravity,Urine 1.027 (1.001-1.035); Squamous Epithelial Cell,Urine < 1 /hpf (0-5); Urobilinogen,Urine Negative mg/dL (0.0-1.0); WBC,Urine 106 /hpf (0-5)
[2025-07-19 01:30] LABS: Clarity,Urine Turbid (Clear/Hazy)
[2025-07-19] MEDS: SODIUM CHLORIDE RT 10% 15 ML NEBU 5 ML INH (01:36)
[2025-07-19 02:08] LABS: Procalcitonin 109.39 ng/ml (0.0-0.49)
--- NOTE | 2025-07-19 02:32 | PRELIM_ITS ---
CT scan of the chest, abdomen and pelvis without intravenous contrast (axial sections with sagittal and coronal reformats) July 19, 2025 at 0014 hours Clinical History: Cough, fever, abdominal pain. Comparison: No prior study is available for comparison. Findings: Cavitated lesion in the right upper lobe measures 1.8 cm. Cavitated lesions and consolidation in the right lower lobe, the largest measuring 3.4 cm. There is no pleural effusion or pneumothorax. The aorta is within normal limits for age on this noncontrast study. No evidence of mediastinal mass or lymphadenopathy. There is a small pericardial effusion. The liver, gallbladder, spleen, pancreas, and adrenals are unremarkable on this noncontrast study. Bilateral hypotrophic negative kidneys. Left renal cystic lesion measuring 5.3 cm. Transplanted kidney in the right. Mild fat stranding peripheral to the transplanted kidney. No evidence of bowel obstruction. No evidence of appendicitis. The urinary bladder is nondistended, limited evaluation. There is no free fluid or free air. Degenerative changes of the imaged portions of the spine. Chronic multilevel disc disease. No acute fractures. Coronary arteries calcifications. Uterine fibroid. Impression: 1. Right lower lobe pneumonia. 2. Cavitated lesions in the right lung, differential diagnosis includes tuberculosis and metastatic disease. 3. Mild fat stranding peripheral to the transplanted kidney, consider correlation with ultrasound. 4. Small pericardial effusion. 5. Coronary arteries calcifications. If acute myocardial infarction is clinically suspected consider correlation with troponin. Discussion Details: Results verbally communicated to Kevin Oro RN at 05:26 AM ET on 07/19/2025. A call back number is provided to facilitate direct Physician to Physician communication. Report Electronically Signed By: Alon Del Rosario 07/19/2025 2:32:22 AM [EST]
--- NOTE | 2025-07-19 04:49 | PRELIM_ITS ---
Renal Doppler ultrasound with Doppler and wave Doppler spectral analysis. July 19, 2025 0248 hours Clinical history: Pyelo. Technique: Ultrasound imaging of the kidneys and bladder, retroperitoneum were performed. Images supplemented with color and spectral Doppler technique. Correlated with prior CT of July 19, 2025. Findings: The kidneys are unremarkable. The right kidney measures 10.7 x 5.6 x 4.7 cm. The cortical thickness appears unremarkable. There is no hydronephrosis. No renal calculus is identified. The left kidney measures 7.6 x 3.2 x 3.3 cm. The cortical thickness appears unremarkable. There is no hydronephrosis. No renal calculus is identified. Simple cystic lesion at the inferior pole of the left kidney measures 4.9 x 4.0 x 4.5 cm. The aorta is normal in caliber and demonstrates normal color and spectral Doppler flow pattern with a peak systolic velocity of 5.7 m/sec. The renal arteries at its origin, main renal arteries and the intrarenal parenchymal arteries demonstrate normal spectral pattern and resistive indices bilaterally. The renal artery to aortic ratio is within normal limits. No direct or indirect evidence to suggest renal artery stenosis. The renal veins demonstrate normal flow and are unremarkable. Right PSV (m/sec) RAR Renal Artery proximal 0.6 0.9 Mid 0.5 0.8 Distal 0.3 0.7 Segmental 0.1 0.6 Left PSV (m/sec) RAR Renal Artery Proximal 0.5 0.8 Mid 0.4 0.7 Distal 0.4 0.7 Segmental 0.2 0.7 Impression: No renal calculus or urinary obstruction. No direct or indirect evidence to suggest renal artery stenosis. Report Electronically Signed By: Alon Del Rosario 07/19/2025 4:48:58 AM [EST]
[2025-07-19 04:54] LABS: Lactate (Lactic Acid) 1.9 mMol/L (0.4-2.0)
[2025-07-19 05:03] LABS: Basophils # (Auto) 0.1 Thou/mm3 (0.0-0.2); Basophils % (Auto) 0 % (0-2.5); Eosinophils # (Auto) 0.0 Thou/mm3 (0.0-0.5); Eosinophils % (Auto) 0 % (0-10); Hematocrit 31.7 % (36.0-46.0); Hemoglobin 10.6 g/dL (12.0-16.0); Immature Granulocytes Auto 0.98 Thou/mm3 (0.00-0.00); Lymphocytes # (Auto) 0.4 Thou/mm3 (1.0-4.8); Lymphocytes % (Auto) 3 % (10-50); Mean Corpuscular HGB Conc 33.4 g/dl (31.0-37.0); Mean Corpuscular Hemoglobin 30.9 pg (25.0-35.0); Mean Corpuscular Volume 92 fL (80-100); Monocytes # (Auto) 0.7 Thou/mm3 (0.0-0.8); Monocytes % (Auto) 5 % (0-12); Neutrophils # (Auto) 12.3 Thou/mm3 (1.8-7.7); Neutrophils % (Auto) 86 % (37-80); Nucleated Red Blood Cell # 0.00 Thou/mm3 (0.00-0.00); Nucleated Red Blood Cell % 0 /100 WBC (0); Platelet Count 103 Thou/mm3 (140-440); RDW Standard Deviation 42.0 fL (36.4-46.3); Red Blood Count 3.43 Miln/mm3 (4.00-5.20); White Blood Count 14.4 Thou/mm3 (3.6-11.0)
[2025-07-19 05:25] LABS: Alanine Aminotransferase 43 U/L (10-49); Albumin, Serum 3.5 gm/dL (3.5-5.0); Albumin/Globulin Ratio 2.5 (1.2-2.2); Alkaline Phosphatase 104 U/L (46-116); Anion Gap 13 (7-16); Aspartate Amino Transferase 43 U/L (0-34); BUN/Creatinine Ratio 12 Ratio (12-20); Bilirubin,Total 1.5 mg/dL (0.3-1.2); Blood Urea Nitrogen 27 mg/dL (9-23); Calcium 8.2 mg/dL (8.3-10.6); Calcium (Corrected) 8.6 mg/dL (8.5-10.1); Carbon Dioxide 22.1 mMol/L (20.0-31.0); Chloride 100 mMol/L (98-107); Creatinine (Component) 2.3 mg/dL (0.6-1.3); Estimated Creatinine Clearance 24.0 mL/min (>60); Globulin 1.4 gm/dL (2.3-3.5); Glucose 115 mg/dL (74-106); Magnesium 1.5 mg/dL (1.6-2.6); Osmolality,Calculated 276 (275-295); Phosphorous 4.2 mg/dL (2.4-5.1); Potassium 4.6 mMol/L (3.4-5.1); Sodium 135 mMol/L (136-145); Total Protein 4.9 gm/dL (5.7-8.2); eGFR 24 See Note
[2025-07-19] MEDS: MORPHINE SULF INJ 4 MG/ML VIAL 2 MG IVP (05:47)
[2025-07-19] MEDS: PIPER/TAZO INJ 4.5 GM in SODIUM CHLORIDE 0.9% (POP) 100 ML IV ×3 (06:25→22:00)
[2025-07-19 07:16] LABS: Hepatitis B Core Antibody IgM Non Reactive (Non React); Hepatitis B Surface Antigen Non Reactive (Non React); Hepatitis C Antibody Non Reactive (Non React)
[2025-07-19 08:49] LABS: Hepatitis A Antibody IgM Non Reactive (Non React)
[2025-07-19] MEDS: ONDANSETRON INJ 2 MG/ML INJ 2 ML 4 MG IVP (09:10)
[2025-07-19] MEDS: DOXYCYCLINE 100 MG TABLET PO ×3 (09:11→22:00)
[2025-07-19] MEDS: Magnesium Sulfate 4 GM Ivpb 4 GM/50 ML BAG IV (09:11)
[2025-07-19 09:19] LABS: Lactate (Lactic Acid) 2.6 mMol/L (0.4-2.0)
[2025-07-19] MEDS: SODIUM CHLORIDE 0.9% 1000 ML 1,000 ML 80 ML IV (10:57)
[2025-07-19 12:17] LABS: Reflex Lactate? Y
[2025-07-19 13:17] LABS: Lactate (Lactic Acid) 2.5 mMol/L (0.4-2.0)
[2025-07-19 14:33] LABS: Cocci Serology, IgM Negative (Negative)
--- NOTE | 2025-07-19 15:37 | ESPR_ITS ---
<Statement entered by Xu Hayes MD - 07/20/25 16:05> Patient is seen and examined at bedside. Admitted overnight in view of 20 pound weight loss, cough, and tiredness. Patient underwent transplant 2 years ago and is on immunosuppression. CT chest done in the hospital showed multiple cavitary lesions in the right lung. Pending cocci titers. Contacted Dr. Melo, motion picture narrator in [facility] who recommended transfer patient to the [facility] for further evaluation as patient is suspected to have opportunistic infection that needs further evaluation. [facility]. I have personally seen and examined the patient, agree with residents assessment and plan Patient plan of care was discussed with the attending physician, Dr. German Hayes, PGY2 Documentation for date of: 07/19/25 Subjective Subjective Interval history: Patient is a 60-year-old female with a history of HTN, HLD, and kidney transplant (2 years ago), admitted for sepsis secondary to community-acquired pneumonia. She presented with 3-day history of worsening productive cough, associated with nausea, vomiting, 20-pound weight loss, decreased appetite, and intermittent fevers. She denied chest pain, shortness of breath, or recent sick contacts. Currently, her only complaint is persistent cough. Pain has subsided, and she is breathing comfortably. Exam Vital Signs Temp Pulse Resp BP Pulse Ox O2 Del Method 97.0 F 74 14 141/86 H 97 Room Air 07/19/25 08:00 07/19/25 09:49 07/19/25 06:20 07/19/25 09:50 07/19/25 09:50 07/19/25 02:17 Narrative Exam General: Alert and oriented x3, in mild distress from cough. HEENT: NC/AT, mucous membranes moist, sclera anicteric. Cardiovascular: Regular rate and rhythm, S1/S2 present, no murmurs. Pulmonary: Clear to auscultation bilaterally, no rales/rhonchi/wheezes. Abdomen: Soft, non-tender, non-distended, normal bowel sounds. Musculoskeletal: Normal ROM, no peripheral edema. Skin: Warm, dry, intact. Neuro: CN II-XII intact, no focal deficits. Objective Labs 07/20/25 04:35 07/20/25 04:35 Labs: Laboratory Results - last 24 hr 07/18/25 07/19/25 07/19/25 21:02 00:44 00:49 WBC 12.7 H RBC 3.94 L Hgb 12.0 Hct 36.2 MCV 92 MCH 30.5 MCHC 33.1 RDW Std Deviation 40.7 Plt Count 130 L Neut % (Auto) 88 H Lymph % (Auto) 3 L [place] % (Auto) 5 Eos % (Auto) 1 Baso % (Auto) 0 Neut # (Auto) 11.1 H Lymph # (Auto) 0.3 L [place] # (Auto) 0.6 Eos # (Auto) 0.1 Baso # (Auto) 0.0 Immature Gran # (Auto) 0.45 H Absolute Nucleated RBC 0.00 Immature Gran % 4 H Nucleated RBC % 0 Sodium 136 Potassium 3.7 Chloride 99 Carbon Dioxide 23.2 Anion Gap 14 BUN 24 H Creatinine 2.3 H Estim Creat Clear Calc Not Performed. eGFR 24 L BUN/Creatinine Ratio 10 L Glucose 115 H Calculated Osmolality 276 Lactic Acid 2.4 H 1.7 Calcium 8.6 Corrected Calcium 8.6 Phosphorus Magnesium Total Bilirubin 1.6 H Direct Bilirubin 0.8 H AST 76 H ALT 56 H Alkaline Phosphatase 160 H Total Protein 5.5 L Albumin 4.0 Globulin 1.5 L Albumin/Globulin Ratio 2.7 H Procalcitonin 109.39 H Ur Collection Type Catheter Urine Color Yellow Urine Clarity Turbid A Urine pH 6.0 Ur Specific [place] 1.027 Urine Protein 2+ A Urine Glucose (UA) Negative Urine Ketones 1+ A Urine Blood 2+ A Urine Nitrite Negative Urine Bilirubin Negative Urine Urobilinogen (Auto) Negative Ur Leukocyte Esterase Positive Urine RBC 2 Urine WBC 106 H Ur Squamous Epith Cells < 1 Amorphous Crystals Present A Urine Bacteria Rare Coccidioides IgM Ab Negative Hepatitis A IgM Ab Non Reactive Hep Bs Antigen Non Reactive Hep B Core IgM Ab Non Reactive Hepatitis C Antibody Non Reactive 07/19/25 07/19/25 07/19/25 04:35 09:11 13:10 WBC 14.4 H RBC 3.43 L Hgb 10.6 L Hct 31.7 L MCV 92 MCH 30.9 MCHC 33.4 RDW Std Deviation 42.0 Plt Count 103 L D Neut % (Auto) 86 H Lymph % (Auto) 3 L [place] % (Auto) 5 Eos % (Auto) 0 Baso % (Auto) 0 Neut # (Auto) 12.3 H Lymph # (Auto) 0.4 L [place] # (Auto) 0.7 Eos # (Auto) 0.0 Baso # (Auto) 0.1 Immature Gran # (Auto) 0.98 H Absolute Nucleated RBC 0.00 Immature Gran % 7 H Nucleated RBC % 0 Sodium 135 L Potassium 4.6 D Chloride 100 Carbon Dioxide 22.1 Anion Gap 13 BUN 27 H Creatinine 2.3 H Estim Creat Clear Calc 24.0 L eGFR 24 L BUN/Creatinine Ratio 12 Glucose 115 H Calculated Osmolality 276 Lactic Acid 1.9 2.6 H 2.5 H Calcium 8.2 L Corrected Calcium 8.6 Phosphorus 4.2 Magnesium 1.5 L Total Bilirubin 1.5 H Direct Bilirubin AST 43 H ALT 43 Alkaline Phosphatase 104 D Total Protein 4.9 L Albumin 3.5 D Globulin 1.4 L Albumin/Globulin Ratio 2.5 H Procalcitonin Ur Collection Type Urine Color Urine Clarity Urine pH Ur Specific [place] Urine Protein Urine Glucose (UA) Urine Ketones Urine Blood Urine Nitrite Urine Bilirubin Urine Urobilinogen (Auto) Ur Leukocyte Esterase Urine RBC Urine WBC Ur Squamous Epith Cells Amorphous Crystals Urine Bacteria Coccidioides IgM Ab Hepatitis A IgM Ab Hep Bs Antigen Hep B Core IgM Ab Hepatitis C Antibody Quality Measures Quality Measures sepsis Current suspected stage: ruled out Possible source: pulmonary Blood cultures ordered: yes Antibiotic ordered: Yes Assessment & Plan Assessment Current Active Medications: Generic Name Dose Route Start Last Admin Trade Name Freq PRN Reason Stop Dose Admin Doxycycline Hyclate 100 mg 07/18/25 23:45 07/19/25 09:11 Doxycycline 100 Mg Tablet PO 07/25/25 23:44 100 mg BID YFN Administration Heparin Sodium (Porcine) 5,000 unit 07/18/25 23:45 07/19/25 13:57 Heparin Sod Inj 5000 Unit/Ml Vial SC 08/01/25 23:44 5,000 unit Q8HR YFN Administration Hydrocortisone Sodium Succinate 100 mg 07/19/25 01:00 07/19/25 09:11 Hydrocortisone Sod Succ Inj 100 Mg 2 Ml Vial IV 08/18/25 00:59 100 mg Q8H YFN Administration Piperacillin Sod/Tazobactam 100 mls @ 200 mls/hr 07/19/25 06:30 07/19/25 13:57 Sod 4.5 gm/ Sodium Chloride IV 07/26/25 06:29 200 mls/hr Q8HR YFN Administration Protocol Sodium Chloride 1,000 mls @ 80 mls/hr 07/19/25 10:46 07/19/25 10:57 Ns IV 07/19/25 23:15 80 mls/hr .[id number] ONE Administration Morphine Sulfate 2 mg 07/18/25 23:33 07/19/25 05:47 Morphine Sulf Inj 4 Mg/Ml Vial IVP 07/23/25 23:32 2 mg Q4HR PRN Administration PAIN SCALE 7-10 (Severe Ondansetron HCl 4 mg 07/19/25 01:35 07/19/25 09:10 Ondansetron Inj 2 Mg/Ml Inj 2 Ml IVP 08/18/25 01:34 4 mg Q6HR PRN Administration NAUSEA OR VOMITING Protocol Sennosides 1 tab 07/18/25 23:33 Senna Tablet PO 08/17/25 23:32 QDAY PRN constipation Protocol Plan Sade Rosas is a 60-year-old female with a history of kidney transplant, HTN, and HLD, admitted for pneumonia secondary to cavitary lesions, now clinically improving with persistent cough, afebrile, and stable renal function. #Pneumonia secondary to cavitary lesion Presented febrile with right base cavitary pneumonia. Now afebrile with normalized lactic acid, persistent cough only. Very high procalcitonin (109). Plan: * Continue Zosyn 4.5g IV q8h and doxycycline 100 mg PO BID. * Follow up on blood cultures, urine cultures, and sputum cultures. * Trend WBC and monitor fever curve. * Incentive spirometry, pulmonary hygiene. * Repeat CXR if clinically indicated. * Maintain telemetry. #History of kidney transplant (2 years ago) At risk during infection On immunosuppressive therapy with mycophenolate and prednisone. Stable creatinine at 2.3, baseline unknown. Plan: * Hold mycophenolate during infection. * Contact Dr. Bernardino Cota (motion picture narrator) for transplant guidance. * Renally dose all medications and avoid nephrotoxic agents. #Acute kidney injury vs post-transplant baseline Cr 2.3, stable from admission. Good urine output. Plan: * Continue IV hydration, avoid overload. * Daily BMP to monitor kidney function. * Nephrology consult for further management. #Hyperbilirubinemia #Transaminitis T. bili 1.5, AST/ALT 43 (improved). No liver pain. Plan: * Continue to monitor LFTs. * Follow-up hepatitis panel as ordered. #Anemia & Thrombocytopenia likely infection-related/dilutional anemia Hgb dropped from 12 to 10.6, platelets from 130 to 103. No active bleeding. Plan: * Continue trend CBC daily. * Transfuse PRBC if Hgb <7 or symptomatic. #Hypertension #Hyperlipidemia chronic * Plan: * Resume home meds once medication reconciliation is completed. Health Maintenance: Diet: Regular DVT Prophylaxis: Heparin 5000 units SC every 8 hours Antibiotics: Zosyn and doxycycline (07/19/2025- ) Code Status: Full Disposition: Telemetry ----- Plan discussed with attending physician Dr. Porter and senior resident Dr. Freddy Santos MD PGY-1 Internal Medicine Attending Provider Attestation/Addendum I have discussed and was present for the essential components of the history, physical examination, diagnosis, and treatment plan with the resident. I agree with the patient's care as documented by the resident and amended herein by me. Cj Porter DO. Although this document has been carefully reviewed, there may still be some phonetic and other typographical errors. These errors are purely grammatical due to imperfections in the software program and should not be construed in any way to compromise the substance of the patient's medical care during this visit.
[2025-07-19 16:16] LABS: Reflex Lactate? Y
[2025-07-19 17:10] LABS: Lactate (Lactic Acid) 2.2 mMol/L (0.4-2.0)
--- NOTE | 2025-07-19 17:29 | PD.RESDS ---
Planned Discharge Date 07/19/25 DS: Providers Provider Date of admission: 07/18/25 23:33 Primary care physician: Alvaro Key MD Admitting Provider: Fab Fam MD Attending Provider on Admission: Fab Fam MD Consults: 07/18/25 23:44 Referral Physical Therapy Routine Comment: Physician Instructions: Referral Registered Dietitian Routine Comment: 07/19/25 05:28 Referral Physical Therapy Routine Comment: Physician Instructions: Referral Registered Dietitian Routine Comment: 07/19/25 08:00 Referral Respiratory Therapy Routine Comment: 07/19/25 08:27 Consult to Nephrology Routine Comment: For kidney transplant Consulting Provider: Santos Sumner 07/19/25 08:28 Consult to Infectious Diseases Routine Comment: Renal transplant on immunosuppression Consulting Provider: Diaz Degroot 07/19/25 16:57 Referral - Retail Marketing Executive Stat Service Needed for Transfer: Nephrology Addl Comments:: Kidney transplant service, talk to Kameron Garcia (Kidney Transplant Surgery) from [facility]. phone #[phone] Attending Provider on DC: Davis Porter MD Discharging Provider: Salud Santos MD DS: Diagnosis Problem List Completed Was Problem List Reviewed/Reconciled?: Yes Hospital Course Hospital Course Hospital course: Sade Rosas, a 60-year-old female with a history of kidney transplant, HTN, and HLD, was admitted for pneumonia secondary to cavitary lesions. Upon presentation, she was febrile with a productive cough, nausea, vomiting, weight loss, and decreased appetite. Initial imaging showed right base pneumonia with multiple cavitary lesions, and she was started on Zosyn and doxycycline for broad-spectrum antibiotic coverage. The patient also has a history of kidney transplant and is on mycophenolate and prednisone, which was held during her illness. She was started on stress-dose hydrocortisone and renal function was closely monitored. Her creatinine remained stable at 2.3 and she did not experience worsening renal failure. Infectious disease and nephrology were consulted, and the patient was clinically improving by the time of discharge, with persistent cough as her main complaint. No TB testing or TB precautions were initiated during hospitalization due to the following reasons: No history of TB contact or recent travel, emigrated from [place] in 1989 per patient No hemoptysis No night sweats Weight loss was noted, but this is multifactorial and was likely related to her nausea, vomiting, and poor appetite. No past history of tuberculosis was reported by the patient. We consulted with Dr. Kameron XAVIER from [facility]'s nephrology kidney transplant team, who recommended transferring the patient back to their facility for further evaluation and management of her transplant-related concerns. The transfer nurse has been notified and is coordinating the transfer. Diagnosis during admission: #Pneumonia secondary to cavitary lesion #History of kidney transplant (2 years ago) #Acute kidney injury vs post-transplant baseline #Hyperbilirubinemia #Transaminitis #Anemia & Thrombocytopenia likely infection-related/dilutional anemia #Hypertension #Hyperlipidemia ----- Plan discussed with attending physician Dr. Porter and senior resident Dr. Freddy Santos MD PGY-1 Internal Medicine Time Spent with Patient Time attestation: Total time spent providing and/or coordinating discharge services: Time spent: Greater than 30 minutes Exam Vital Signs Temp Pulse Resp BP Pulse Ox O2 Del Method 96.8 F 76 15 128/82 95 Room Air 07/19/25 16:00 07/19/25 16:00 07/19/25 16:00 07/19/25 16:00 07/19/25 16:00 07/19/25 16:00 Narrative Exam General: Alert and oriented x3, in mild distress from cough. HEENT: NC/AT, mucous membranes moist, sclera anicteric. Cardiovascular: Regular rate and rhythm, S1/S2 present, no murmurs. Pulmonary: Clear to auscultation bilaterally, no rales/rhonchi/wheezes. Abdomen: Soft, non-tender, non-distended, normal bowel sounds. Musculoskeletal: Normal ROM, no peripheral edema. Skin: Warm, dry, intact. Neuro: CN II-XII intact, no focal deficits. Discharge Plan Plan Patient Disposition: Xfer Other Facility Pt Being Transferred to: [facility] Prescriptions/Referrals Prescriptions/Med Rec: No Action sevelamer HCl 800 mg Tablet 800 mg PO TID levothyroxine [Synthroid] 25 mcg Tablet 50 mcg PO QDAY furosemide 80 mg Tablet 80 mg PO BID amlodipine 10 mg Tablet 10 mg PO QDAY losartan 100 mg Tablet 50 mg PO QDAY Asmanex HFA 200 mcg/actuation Hfa Aerosol Inhaler 1 inh INHALATION QDAY hydrocodone-acetaminophen 5-325 mg tablet 1 tab PO Q8H MDD 3 PRN (Reason: pain (scale score 7-10)) Qty: 15 0RF omega-3 fatty acids Capsule 1,000 mg PO QDAY simvastatin 20 mg Tablet 20 mg PO QPM calcitriol 0.5 mcg Capsule 0.5 mcg PO .COMPLEX Rx Instructions: 0.5 mcg orally 3 times week; docusate sodium 250 mg Capsule 250 mg PO BID omega-3 fatty acids Capsule 4,000 mg PO QDAY Nephro-Alvarado Rx 1-60-300 mg-mg-mcg Tablet 1 tab PO QDAY Liquacel 16-100 gram-kcal/30 mL Liquid 32 ml PO DAILY tramadol 50 mg tablet 50 mg PO Q6H PRN (Reason: pain) Qty: 20 0RF hydrocodone-acetaminophen 5-325 mg tablet 1 tab PO Q8H MDD 3 tablets/day PRN (Reason: pain) Qty: 10 0RF prednisone 5 mg tablet 5 mg PO DAILY Patient Comments: TAKE 1 TABLET (5 MG TOTAL) BY MOUTH DAILY. sodium bicarbonate 650 mg tablet 650 mg PO BID ferrous sulfate [Iron (ferrous sulfate)] 325 mg (65 mg iron) tablet 65 mg PO QDAY ropinirole 1 mg tablet 1 mg PO QDAY Patient Comments: 3 hours before bed loratadine [Claritin] 10 mg tablet 10 mg PO QDAY belatacept 250 mg recon soln See Rx Instructions IV .COMPLEX Patient Comments: every 4 weeks Rx Instructions: intravenously; carvedilol 12.5 mg tablet 12.5 mg PO BID Rx Instructions: must administer with a meal/food cholecalciferol (vitamin D3) [Vitamin D3] 50 mcg (2,000 unit) capsule 50 mcg PO QDAY Excedrin Tension Headache 500-65 mg tablet 1 tab PO Q8H PRN (Reason: pain) Qty: 30 0RF ondansetron 4 mg tablet,disintegrating 4 mg PO Q8H PRN (Reason: nausea and vomiting) Qty: 14 0RF Referrals: Alvaro Key MD [Primary Care Provider, Family Practice] Patient/Caregiver Discharge Instructions Print Language: Armenian Stand Alone Forms: Latanya Award Info., Patient Portal Info Letter Quality Discharge Quality Measures VTE prophylaxis Attestestation Attestation Patient not discharged today, awaiting transfer however no beds available at [facility].
--- NOTE | 2025-07-19 17:33 | PC.CM ---
Addendum entered by Aishwarya Hernandez RN 07/19/25 19:34: 1920 Patient needs transfer for Nephrology. Patient was seen at [facility] 2 years ago for Kidney transplant. I initiated transfer with [facility]. Transfer packet started with? 1CD and handed to charge nurse.??? Dr. Santos spoke to Dr. Kameron Garcia phone # [phone] from [facility]. . Dr Santos states Dr. Garcia would like patient to be transferred to [facility]. Patient primary doctor at [facility] is Dr. Bernardino Cota. Addendum entered by Aishwarya Hernandez RN 07/19/25 18:45: 1840 I spoke to Jessenia transfer nurse from [facility]. I presented patient and answered questions on patient visit. Jessenia states she will be faxing a transfer back agreement. I started packet and I made 1 CD. Original Note: 1730 I reviewed patient's EMR and I initiated a transfer with [facility]. I faxed over information. 1700 I received a referral to transfer patient for nephrology. Patient had a kidney transplant 2 years ago with [facility]. Dr. Santos spoke to DR Kameron Garcia phone # [phone]. Dr Santos states Dr. Garcia would like patient to be transferred to [facility]. Patient primary doctor at [facility] is Dr. Bernardino Cota.
[2025-07-19 20:09] LABS: Reflex Lactate? Y
[2025-07-19 20:29] LABS: Lactic Acid, 3 HR 2.2 mMol/L (0.4-2.0)
[2025-07-19] MEDS: MYCOPHENOLATE 250 MG CAPSULE PO (22:00)
--- NOTE | 2025-07-19 23:53 | PC.NURSE ---
Recieved call from Ruben at [facility] Transfer center Pt has been accepted. Accepting physician: Kameron Garcia Waiting on bed Faxed facesheet, H&P, progress notes, labs, image results. Images sent. Transfer Agreement signed and faxed back
[2025-07-20] VITALS (9 sets, daily range): BP systolic 135–162; BP diastolic 86–99; PULSE 61–75; RESP 13–98; TEMP 36.2–36.6; O2SAT 87–96
[2025-07-20] MEDS: HYDROCORTISONE SOD SUCC INJ 100 MG 2 ML VIAL IV (01:16)
[2025-07-20] MEDS: ONDANSETRON INJ 2 MG/ML INJ 2 ML 4 MG IVP (03:24)
[2025-07-20 05:13] LABS: Basophils # (Auto) 0.1 Thou/mm3 (0.0-0.2); Basophils % (Auto) 0 % (0-2.5); Eosinophils # (Auto) 0.2 Thou/mm3 (0.0-0.5); Eosinophils % (Auto) 1 % (0-10); Hematocrit 32.4 % (36.0-46.0); Hemoglobin 10.7 g/dL (12.0-16.0); Immature Granulocytes Auto 2.58 Thou/mm3 (0.00-0.00); Lymphocytes # (Auto) 0.5 Thou/mm3 (1.0-4.8); Lymphocytes % (Auto) 3 % (10-50); Mean Corpuscular HGB Conc 33.0 g/dl (31.0-37.0); Mean Corpuscular Hemoglobin 30.2 pg (25.0-35.0); Mean Corpuscular Volume 92 fL (80-100); Monocytes # (Auto) 0.5 Thou/mm3 (0.0-0.8); Monocytes % (Auto) 3 % (0-12); Neutrophils # (Auto) 12.8 Thou/mm3 (1.8-7.7); Neutrophils % (Auto) 77 % (37-80); Nucleated Red Blood Cell # 0.00 Thou/mm3 (0.00-0.00); Nucleated Red Blood Cell % 0 /100 WBC (0); Platelet Count 93 Thou/mm3 (140-440); RDW Standard Deviation 41.9 fL (36.4-46.3); Red Blood Count 3.54 Miln/mm3 (4.00-5.20); White Blood Count 16.6 Thou/mm3 (3.6-11.0)
[2025-07-20] MEDS: PIPER/TAZO INJ 4.5 GM in SODIUM CHLORIDE 0.9% (POP) 100 ML IV ×2 (05:37→14:40)
[2025-07-20] MEDS: HEPARIN SOD INJ 5000 UNIT/ML VIAL SC ×2 (05:38→14:40)
[2025-07-20 06:05] LABS: Alanine Aminotransferase 31 U/L (10-49); Albumin, Serum 3.5 gm/dL (3.5-5.0); Albumin/Globulin Ratio 2.2 (1.2-2.2); Alkaline Phosphatase 83 U/L (46-116); Anion Gap 14 (7-16); Aspartate Amino Transferase 21 U/L (0-34); BUN/Creatinine Ratio 9 Ratio (12-20); Bilirubin,Total 0.9 mg/dL (0.3-1.2); Blood Urea Nitrogen 19 mg/dL (9-23); Calcium 8.5 mg/dL (8.3-10.6); Calcium (Corrected) 8.9 mg/dL (8.5-10.1); Carbon Dioxide 22.1 mMol/L (20.0-31.0); Chloride 103 mMol/L (98-107); Creatinine (Component) 2.2 mg/dL (0.6-1.3); Estimated Creatinine Clearance 24.4 mL/min (>60); Globulin 1.6 gm/dL (2.3-3.5); Glucose 115 mg/dL (74-106); Magnesium 2.7 mg/dL (1.6-2.6); Osmolality,Calculated 280 (275-295); Phosphorous 3.2 mg/dL (2.4-5.1); Potassium 4.0 mMol/L (3.4-5.1); Sodium 139 mMol/L (136-145); Total Protein 5.1 gm/dL (5.7-8.2); eGFR 25 See Note
[2025-07-20] MEDS: DOXYCYCLINE 100 MG TABLET PO (08:40)
--- NOTE | 2025-07-20 09:30 | PC.CM ---
Addendum entered by Aishwarya Hernandez RN 07/20/25 15:56: Patient has been accepted by Dr. Kameron Garcia at [facility]. Patient will be going to the [facility] at [address] [place] [address]. she will go to [address] [place] [address] RM 1332. Number to call and give report is [phone]. I called and notified patient's nurse and Dr. Smith. I will call and set up transport. Original Note: Patient has been accepted by [facility]. I spoke to Yaquelin with the transfer center this morning and we are pending bed availability. I faxed over discharge summary.
--- NOTE | 2025-07-20 11:38 | PC.SS ---
SS follow up note; Patient is pending HLOC to [facility], pending bed availability.
[2025-07-20] MEDS: Artificial Tears 225 DROP/15 ML BTL BOTH EYES (13:14)
--- NOTE | 2025-07-20 14:38 | PD.IDPROG ---
Subjective Subjective Interval history: pneumonia in a compromised pt due to prior renal txp. hx noted. Exam Vital Signs Temp Pulse Resp BP Pulse Ox O2 Del Method 97.4 F 66 16 135/86 H 95 Room Air 07/20/25 11:58 07/20/25 11:58 07/20/25 11:58 07/20/25 11:58 07/20/25 11:58 07/20/25 11:58 Narrative Exam room air now. may move in hospital. will leave on zosyn but if germ s. po agents ok for an additional 7d. I will be away friday so unable to see then Objective - Internal Medicine Labs 07/20/25 04:35 07/20/25 04:35 Labs: Laboratory Results - last 24 hr 07/19/25 07/19/25 07/20/25 17:03 20:18 04:35 WBC 16.6 H RBC 3.54 L Hgb 10.7 L Hct 32.4 L MCV 92 MCH 30.2 MCHC 33.0 RDW Std Deviation 41.9 Plt Count 93 L Neut % (Auto) 77 Lymph % (Auto) 3 L [place] % (Auto) 3 Eos % (Auto) 1 Baso % (Auto) 0 Neut # (Auto) 12.8 H Lymph # (Auto) 0.5 L [place] # (Auto) 0.5 Eos # (Auto) 0.2 Baso # (Auto) 0.1 Immature Gran # (Auto) 2.58 H Absolute Nucleated RBC 0.00 Immature Gran % 16 H Nucleated RBC % 0 Sodium 139 Potassium 4.0 D Chloride 103 Carbon Dioxide 22.1 Anion Gap 14 BUN 19 Creatinine 2.2 H Estim Creat Clear Calc 24.4 L eGFR 25 L BUN/Creatinine Ratio 9 L Glucose 115 H Calculated Osmolality 280 Lactic Acid 2.2 H 2.2 H Calcium 8.5 Corrected Calcium 8.9 Phosphorus 3.2 Magnesium 2.7 H Total Bilirubin 0.9 D AST 21 ALT 31 Alkaline Phosphatase 83 D Total Protein 5.1 L Albumin 3.5 Globulin 1.6 L Albumin/Globulin Ratio 2.2 Assessment & Plan A&P Narrative bacteremia and pneumonia. renal txp role of doxy absent with pos bc for gnr. will f/u on those on friday as I will not be here friday as I have a medical procedure of my own to do will leave on zosyn but ok to move to different agent once S available.added hiv screen to w/u. hep c neg already , edwar noted despite the assertions of radiologhy, lower lobe cavities are rarely due to tb. prior qtf neg noted. cocci IGM neg and pt off O2 now so appears improved on paper. Time Spent With Patient Time: Total time spent is greater than 50% in coordination of care (as documented) at patient's floor/unit and/or counseling patient:
--- NOTE | 2025-07-20 15:04 | PD.RESPRO ---
Documentation for date of: 07/20/25 Exam Vital Signs Temp Pulse Resp BP Pulse Ox O2 Del Method 97.4 F 66 16 135/86 H 95 Room Air 07/20/25 11:58 07/20/25 11:58 07/20/25 11:58 07/20/25 11:58 07/20/25 11:58 07/20/25 11:58 Narrative Exam General: Alert and oriented x3, in mild distress from cough. HEENT: NC/AT, mucous membranes moist, sclera anicteric. Cardiovascular: Regular rate and rhythm, S1/S2 present, no murmurs. Pulmonary: Clear to auscultation bilaterally, no rales/rhonchi/wheezes. Abdomen: Soft, non-tender, non-distended, normal bowel sounds. Musculoskeletal: Normal ROM, no peripheral edema. Skin: Warm, dry, intact. Neuro: CN II-XII intact, no focal deficits. Objective Labs 07/20/25 04:35 07/20/25 04:35 Labs: Laboratory Results - last 24 hr 07/19/25 07/19/25 07/20/25 17:03 20:18 04:35 WBC 16.6 H RBC 3.54 L Hgb 10.7 L Hct 32.4 L MCV 92 MCH 30.2 MCHC 33.0 RDW Std Deviation 41.9 Plt Count 93 L Neut % (Auto) 77 Lymph % (Auto) 3 L [place] % (Auto) 3 Eos % (Auto) 1 Baso % (Auto) 0 Neut # (Auto) 12.8 H Lymph # (Auto) 0.5 L [place] # (Auto) 0.5 Eos # (Auto) 0.2 Baso # (Auto) 0.1 Immature Gran # (Auto) 2.58 H Absolute Nucleated RBC 0.00 Immature Gran % 16 H Nucleated RBC % 0 Sodium 139 Potassium 4.0 D Chloride 103 Carbon Dioxide 22.1 Anion Gap 14 BUN 19 Creatinine 2.2 H Estim Creat Clear Calc 24.4 L eGFR 25 L BUN/Creatinine Ratio 9 L Glucose 115 H Calculated Osmolality 280 Lactic Acid 2.2 H 2.2 H Calcium 8.5 Corrected Calcium 8.9 Phosphorus 3.2 Magnesium 2.7 H Total Bilirubin 0.9 D AST 21 ALT 31 Alkaline Phosphatase 83 D Total Protein 5.1 L Albumin 3.5 Globulin 1.6 L Albumin/Globulin Ratio 2.2 Quality Measures Quality Measures VTE prophylaxis Assessment & Plan Assessment Current Active Medications: Generic Name Dose Route Start Last Admin Trade Name Freq PRN Reason Stop Dose Admin Artificial Tears 0 drop 07/20/25 12:44 07/20/25 13:14 Artificial Tears 225 Drop/15 Ml Btl BOTH EYES 08/19/25 12:43 2 drop Q2H PRN Administration TO KEEP EYES MOIST Heparin Sodium (Porcine) 5,000 unit 07/18/25 23:45 07/20/25 14:40 Heparin Sod Inj 5000 Unit/Ml Vial SC 08/01/25 23:44 5,000 unit Q8HR YFN Administration Piperacillin Sod/Tazobactam 100 mls @ 200 mls/hr 07/19/25 06:30 07/20/25 14:40 Sod 4.5 gm/ Sodium Chloride IV 07/26/25 06:29 200 mls/hr Q8HR YFN Administration Protocol Morphine Sulfate 2 mg 07/18/25 23:33 07/19/25 05:47 Morphine Sulf Inj 4 Mg/Ml Vial IVP 07/23/25 23:32 2 mg Q4HR PRN Administration PAIN SCALE 7-10 (Severe Mycophenolate Mofetil 250 mg 07/19/25 21:00 07/19/25 22:00 Mycophenolate 250 Mg Capsule PO 08/18/25 20:59 250 mg BID YFN Administration Ondansetron HCl 4 mg 07/19/25 01:35 07/20/25 03:24 Ondansetron Inj 2 Mg/Ml Inj 2 Ml IVP 08/18/25 01:34 4 mg Q6HR PRN Administration NAUSEA OR VOMITING Protocol Prednisone 5 mg 07/20/25 09:00 07/20/25 08:39 Prednisone 5 Mg Tablet PO 08/19/25 08:59 5 mg DAILY YFN Administration Protocol Sennosides 1 tab 07/18/25 23:33 Senna Tablet PO 08/17/25 23:32 QDAY PRN constipation Protocol Plan Sade Rosas is a 60-year-old female with a history of kidney transplant, HTN, and HLD, admitted for pneumonia secondary to cavitary lesions, now clinically improving with persistent cough, afebrile, and stable renal function. #Pneumonia secondary to cavitary lesion Presented febrile with right base cavitary pneumonia. Now afebrile with normalized lactic acid, persistent cough only. Very high procalcitonin (109). Plan: Continue Zosyn 4.5g IV q8h and doxycycline 100 mg PO BID. Follow up on blood cultures, urine cultures, and sputum cultures. Trend WBC and monitor fever curve. Incentive spirometry, pulmonary hygiene. Repeat CXR if clinically indicated. Maintain telemetry. #History of kidney transplant (2 years ago) At risk during infection On immunosuppressive therapy with mycophenolate and prednisone. Stable creatinine at 2.3, baseline unknown. Plan: Resume mycophenolate 250 BID, following conversation with kidney transplant team in [facility]. Contact Dr. Bernardino Cota (stone cutter) for transplant guidance. Renally dose all medications and avoid nephrotoxic agents. #Acute kidney injury vs post-transplant baseline Cr 2.2, stable from admission. Good urine output. Plan: Continue IV hydration, avoid overload. Daily BMP to monitor kidney function. Nephrology consult for further management. #Hyperbilirubinemia #Transaminitis (resolved) T. bili 1.5, AST 21/ALT 31 (resolved). No liver pain. Plan: Continue to monitor LFTs. Follow-up hepatitis panel as ordered. #Anemia & Thrombocytopenia likely infection-related/dilutional anemia Hgb dropped from 12 to 10.7, platelets from 130 to 93. No active bleeding. Plan: Continue trend CBC daily. Transfuse PRBC if Hgb <7 or symptomatic. #Hypertension #Hyperlipidemia chronic Plan: Resume home meds once medication reconciliation is completed. Health Maintenance: Diet: Regular DVT Prophylaxis: Heparin 5000 units SC every 8 hours Antibiotics: Zosyn and doxycycline (07/19/2025- ) Code Status: Full Disposition: Telemetry ----- Plan discussed with attending physician Dr. Porter and senior resident Dr. Freddy Santos MD PGY-1 Internal Medicine
--- NOTE | 2025-07-20 15:27 | ESCONSULT_ITS ---
RE: LEVAR QUINTANA : 1965 DATE OF CONSULTATION: 07/20/2025 REFERRING PHYSICIAN: hospitalist team REASON FOR CONSULTATION: Bacteremia, chronic kidney disease stage V after successful transplantation in 2022 at [facility]. HISTORY OF PRESENT ILLNESS: Patient had transplant at [facility] about 2 years ago. For some reason, they did not take her over the weekend. I am not surprised at that but many times the transplant centers are not taking everybody back. This is unusual but possible. She is already somewhat improved. Fevers seem like they have abated. She has been on Zosyn for a couple of days. She was also on some doxycycline which I am stopping. Her last fever was noted shortly after admission although she states she was only sick for a couple of days since Friday. Her creatinine did reach a maximum of about significant, but as the value was as high as 8.0 on 04/12, but it came down to 5.8 on 07/19 and 2.3 after some hydration. So she has responded well to treatment. I am going to leave her on the Zosyn for now. I will probably make sure the dose is adjusted for her chronic kidney disease as a precaution. Pharmacy may adjust if they see fit. PAST SURGICAL HISTORY: Includes transplant and renal dialysis access procedures in the past. Transplant was done at [facility] about 2022. ALLERGIES: VITAMIN B. IMMUNIZATIONS: Last tetanus is not known. She does take a flu shot every year. Has had 7 COVID vaccines and has not had pneumococcal vaccination. FAMILY HISTORY: Negative for diabetes, positive for other problems in her mother and other relatives. SOCIAL HISTORY: She lives with her and children. There are no smokers in the home. PHYSICAL EXAMINATION: GENERAL: She is a pleasant [id number] woman. HEENT: Benign. HEART: Benign. LUNGS: Benign. ABDOMEN: Benign. She does seem significantly improved. There is no repeat blood cultures which is usually not necessary for gram- negative rods as the response is usually quite brisk. She has no obvious source for the infection, so I assume she may have had a spontaneous bacteremia which can occur. With her immunocompromised state she may benefit from some antibiotics but we should probably wait until the final S are available from the lab. I will be away for a few days for personal reasons, but I will be back to see her on Friday if she is still here. If you cannot make a decision I can assist with decision making but I will be remote during those days, usually on Friday and other days. DT: 14:59:16 TT: 15:25:00 Ref: [id number] - TID: [id number] MTDD
--- NOTE | 2025-07-20 15:48 | ESDS_ITS ---
<Statement entered by Xu Hayes MD - 07/20/25 18:13> 60-year-old female with significant past medical history of kidney transplant 2 years ago, hypertension, hyperlipidemia was admitted to the hospital in view of pneumonia secondary to cavitary lesion. Patient reported that she is having weight loss of 20 pounds over the last couple of months and cough without any expectoration. Denies shortness of breath, fever, nausea, vomitings. Compliant with all her medications. Patient was started on antibiotics. Called [facility] and talk to flight engineer instructor, Dr. Melo who recommended transfer back to patient to [facility] in view of suspected opportunistic infections and for further evaluation. I have personally seen and examined the patient, agree with residents assessment and plan Patient plan of care was discussed with the attending physician, Dr. German Hayes, PGY2 Planned Discharge Date 07/20/25 DS: Providers Provider Date of admission: 07/18/25 23:33 Primary care physician: Alvaro Key MD Admitting Provider: Fab Fam MD Attending Provider on Admission: Fab Fam MD Consults: 07/18/25 23:44 Referral Physical Therapy Routine Comment: Physician Instructions: Referral Registered Dietitian Routine Comment: 07/19/25 05:28 Referral Physical Therapy Routine Comment: Physician Instructions: Referral Registered Dietitian Routine Comment: 07/19/25 08:00 Referral Respiratory Therapy Routine Comment: 07/19/25 08:27 Consult to Nephrology Routine Comment: For kidney transplant Consulting Provider: Cheli Nolasco 07/19/25 08:28 Consult to Infectious Diseases Routine Comment: Renal transplant on immunosuppression Consulting Provider: Diaz Degroot 07/19/25 16:57 Referral - Show Host Stat Service Needed for Transfer: Nephrology Addl Comments:: Kidney transplant service, talk to Kameron Garcia (Kidney Transplant Surgery) from [facility]. phone #[phone] Attending Provider on DC: Davis Porter DO Discharging Provider: Salud Santos MD DS: Diagnosis Problem List Completed Was Problem List Reviewed/Reconciled?: Yes Hospital Course Hospital Course Hospital course: Sade Rosas, a 60-year-old female with a history of kidney transplant, HTN, and HLD, was admitted for pneumonia secondary to cavitary lesions. Upon presentation , she was febrile with a productive cough, nausea, vomiting, weight loss, and decreased appetite. Initial imaging showed right base pneumonia with multiple cavitary lesions, and she was started on Zosyn and doxycycline for broad- spectrum antibiotic coverage. The patient also has a history of kidney transplant and is on mycophenolate and prednisone, which was held during her illness. She was started on stress-dose hydrocortisone and renal function was closely monitored. Her creatinine remained stable at 2.3 and she did not experience worsening renal failure. Infectious disease and nephrology were consulted, and the patient was clinically improving by the time of discharge, with persistent cough as her main complaint. No TB testing or TB precautions were initiated during hospitalization due to the following reasons: * No history of TB contact or recent travel, emigrated from [place] in 1989 per patient * No hemoptysis * No night sweats * Weight loss was noted, but this is multifactorial and was likely related to her nausea, vomiting, and poor appetite. * No past history of tuberculosis was reported by the patient. We consulted with Dr. Kameron Garcia [facility] from [facility]'s nephrology kidney t ransplant team, who recommended transferring the patient back to their facility for further evaluation and management of her transplant-related concerns. The transfer nurse has been notified and is coordinating the transfer. Diagnosis during admission: #Pneumonia secondary to cavitary lesion #History of kidney transplant (2 years ago) #Acute kidney injury vs post-transplant baseline #Hyperbilirubinemia #Transaminitis #Anemia & Thrombocytopenia likely infection-related/dilutional anemia #Hypertension #Hyperlipidemia ----- Plan discussed with attending physician Dr. Porter and senior resident Dr. Freddy Santos MD PGY-1 Internal Medicine Time Spent with Patient Time attestation: Total time spent providing and/or coordinating discharge services: Time spent: Greater than 30 minutes Exam Vital Signs Temp Pulse Resp BP Pulse Ox O2 Del Method 97.4 F 66 16 135/86 H 95 Room Air 07/20/25 11:58 07/20/25 11:58 07/20/25 11:58 07/20/25 11:58 07/20/25 11:58 07/20/25 11:58 Narrative Exam General: Alert and oriented x3, in mild distress from cough. HEENT: NC/AT, mucous membranes moist, sclera anicteric. Cardiovascular: Regular rate and rhythm, S1/S2 present, no murmurs. Pulmonary: Clear to auscultation bilaterally, no rales/rhonchi/wheezes. Abdomen: Soft, non-tender, non-distended, normal bowel sounds. Musculoskeletal: Normal ROM, no peripheral edema. Skin: Warm, dry, intact. Neuro: CN II-XII intact, no focal deficits. Discharge Plan Plan Patient Disposition: er Other Facility Pt Being Transferred to: [facility] Patient condition on transfer: Stable Prescriptions/Referrals Prescriptions/Med Rec: No Action sevelamer HCl 800 mg Tablet 800 mg PO TID levothyroxine [Synthroid] 25 mcg Tablet 50 mcg PO QDAY furosemide 80 mg Tablet 80 mg PO BID amlodipine 10 mg Tablet 10 mg PO QDAY losartan 100 mg Tablet 50 mg PO QDAY Asmanex HFA 200 mcg/actuation Hfa Aerosol Inhaler 1 inh INHALATION QDAY hydrocodone-acetaminophen 5-325 mg tablet 1 tab PO Q8H MDD 3 PRN (Reason: pain (scale score 7-10)) Qty: 15 0RF omega-3 fatty acids Capsule 1,000 mg PO QDAY simvastatin 20 mg Tablet 20 mg PO QPM calcitriol 0.5 mcg Capsule 0.5 mcg PO .COMPLEX Rx Instructions: 0.5 mcg orally 3 times week; docusate sodium 250 mg Capsule 250 mg PO BID omega-3 fatty acids Capsule 4,000 mg PO QDAY Nephro-Alvarado Rx 1-60-300 mg-mg-mcg Tablet 1 tab PO QDAY Liquacel 16-100 gram-kcal/30 mL Liquid 32 ml PO DAILY tramadol 50 mg tablet 50 mg PO Q6H PRN (Reason: pain) Qty: 20 0RF hydrocodone-acetaminophen 5-325 mg tablet 1 tab PO Q8H MDD 3 tablets/day PRN (Reason: pain) Qty: 10 0RF prednisone 5 mg tablet 5 mg PO DAILY Patient Comments: TAKE 1 TABLET (5 MG TOTAL) BY MOUTH DAILY. sodium bicarbonate 650 mg tablet 650 mg PO BID ferrous sulfate [Iron (ferrous sulfate)] 325 mg (65 mg iron) tablet 65 mg PO QDAY ropinirole 1 mg tablet 1 mg PO QDAY Patient Comments: 3 hours before bed loratadine [Claritin] 10 mg tablet 10 mg PO QDAY belatacept 250 mg recon soln See Rx Instructions IV .COMPLEX Patient Comments: every 4 weeks Rx Instructions: intravenously; carvedilol 12.5 mg tablet 12.5 mg PO BID Rx Instructions: must administer with a meal/food cholecalciferol (vitamin D3) [Vitamin D3] 50 mcg (2,000 unit) capsule 50 mcg PO QDAY Excedrin Tension Headache 500-65 mg tablet 1 tab PO Q8H PRN (Reason: pain) Qty: 30 0RF ondansetron 4 mg tablet,disintegrating 4 mg PO Q8H PRN (Reason: nausea and vomiting) Qty: 14 0RF Referrals: Alvaro Key MD [Primary Care Provider, Family Practice] Patient/Caregiver Discharge Instructions Print Language: Eritrean Stand Alone Forms: Latanya Award Info., Patient Portal Info Letter Discharge Order Discharge Orders: Discharge (Routine); Ordered 07/20/25 Ordered By: Diaz Degroot Quality Discharge Quality Measures VTE prophylaxis MD Attestestation MD Attestation I have discussed and was present for the essential components of the discharge history, physical examination, diagnosis, and discharge treatment plan with the resident. I agree with the patient's discharge care as documented by the resident and amended herein by me. Cj Porter DO. Patient will be transferred to [facility] for higher level of care, please see resident note above for additional details in regards to her hospital stay. Although this document has been carefully reviewed, there may still be some phonetic and other typographical errors. These errors are purely grammatical due to imperfections in the software program and should not be construed in any way to compromise the substance of the patient's medical care during this visit.
[2025-07-20 16:57] LABS: Path Review Blood Smear Sent to Pathologist
--- NOTE | 2025-07-20 19:53 | PC.NURSE ---
[facility] transfer center called and spoke to Anna. LUCHO pickett
[2025-07-20] MEDS: MYCOPHENOLATE 250 MG CAPSULE PO (20:06)
[2025-07-21 10:16] LABS: Cocci Serology, IgG Negative (Negative)
== END 2025-07-20 20:14 | disposition short-term general hospital (02) | DRG 871 ==
LOC: SERX 22:03 → SERHOLD 23:42 → S2SX 07-19 06:48 → S2NX 07-20 03:16
PROVIDERS: Admitting Provider Internal Medicine; Emergency Provider Emergency Medicine; PCP Family Medicine; Visit Provider Student in an Organized Health Care Education/Training Program
DX: A41.9 Sepsis, unspecified organism (principal); J18.9 Pneumonia, unspecified organism; Z94.0 Kidney transplant status; R17 Unspecified jaundice; I12.0 Hypertensive chronic kidney disease with stage 5 chronic kidney disease or end stage renal disease; N18.5 Chronic kidney disease, stage 5; N17.9 Acute kidney failure, unspecified; D84.821 Immunodeficiency due to drugs; E78.5 Hyperlipidemia, unspecified; I10 Essential (primary) hypertension; E03.9 Hypothyroidism, unspecified; K21.9 Gastro-esophageal reflux disease without esophagitis; R74.01 Elevation of levels of liver transaminase levels; Z79.624 Long term (current) use of inhibitors of nucleotide synthesis; Z79.890 Hormone replacement therapy; Z79.899 Other long term (current) drug therapy
CPT/HCPCS: 36415; 51701; 71045; 71250; 74176; 76705; 76776; 80053; 80074; 81001; 82248; 83605; 83735; 84100; 84145; 85025; 86331; 86635; 87040; 87077; 87086; 87186; 87205; 87502; 87635; 89220; 93005; 93225; 96361; 96365; 96375; 96376; 97162; 99284; J1644; J1720; J2270; J2405; J2543; J3475; J7030; J7120; J7512; J7517; 94640; A9270